=== PATIENT | female | born 1970 | race Caucasian/White ===

== ENCOUNTER 2017-12-31 15:37 | Emergency (ER) | payer SELFPAY ==
[~2017-12-31] VITALS: Ht 190.5 cm; Wt 136.1 kg
[~2017-12-31 15:37] MED LIST: BIRTH CONTROL
[2017-12-31] MEDS ORDERED: NS IV 1000 ML 1,000 ML IV SCH (16:45)
[2017-12-31] MEDS ORDERED: fentaNYL INJECTION 100 MCG/2 ML AMP IVP ONE (16:45)
[2017-12-31 16:49] LABS: COLOR,URINE AMBER; GLUCOSE, URINE (UA) NEGATIVE (NEGATIVE); KETONES,URINE NEGATIVE (NEGATIVE); LEUKOCYTE ESTERASE ,URINE 3+ (NEGATIVE); NITRITE,URINE POSITIVE (NEGATIVE); PH,URINE 7 (5-9); PROTEIN,URINE 2+ (NEGATIVE); UROBILINOGEN,URINE 4 MG/DL (NORMAL)
[2017-12-31 17:02] LABS: BACTERIA,URINE TRACE /HPF; BILIRUBIN,URINE 1+ (NEGATIVE); CLARITY,URINE CLOUDY; RBC,URINE RARE /HPF; WBC,URINE 50-100 /HPF
[2017-12-31 17:03] LABS: TRICHOMONAS,URINE MODERATE /HPF
[2017-12-31 17:15] LABS: BASOPHILS # (AUTO) 0.1 10^3/uL (0.0-0.1); BASOPHILS % (AUTO) 0 % (0-10); EOSINOPHILS # (AUTO) 0.2 10^3/uL (0.0-0.3); EOSINOPHILS % (AUTO) 1 % (0-10); HEMATOCRIT 47 % (35-52); HEMOGLOBIN 15.8 G/DL (11.5-16.0); LYMPHOCYTES # (AUTO) 3.1 X 10^3 (1.0-4.0); LYMPHOCYTES % (AUTO) 22 % (12-44); MEAN CORPUSCULAR HEMOGLOBIN 30 PG (25-34); MEAN CORPUSCULAR HGB CONC 34 G/DL (32-36); MEAN CORPUSCULAR VOLUME 87 FL (80-99); MEAN PLATELET VOLUME 9.9 FL (7.4-10.4); MONOCYTES # (AUTO) 0.9 X 10^3 (0.0-1.0); MONOCYTES % (AUTO) 7 % (0-12); NEUTROPHILS # (AUTO) 9.4 X 10^3 (1.8-7.8); NEUTROPHILS % (AUTO) 69 % (42-75); PLATELET COUNT 280 10^3/uL (130-400); RED BLOOD COUNT 5.36 10^6/uL (4.35-5.85); WHITE BLOOD COUNT 13.6 10^3/uL (4.3-11.0)
[2017-12-31 17:34] LABS: ALANINE AMINOTRANSFERASE 30 U/L (0-55); ALBUMIN 4.3 GM/DL (3.2-4.5); ALKALINE PHOSPHATASE 116 U/L (40-136); AMYLASE 16 U/L (25-125); BILIRUBIN,TOTAL 0.7 MG/DL (0.1-1.0); BUN/CREATININE RATIO 7; CALCIUM 10.3 MG/DL (8.5-10.1); CARBON DIOXIDE 18 MMOL/L (21-32); CHLORIDE 106 MMOL/L (98-107); GFR ESTIMATED > 60; GLUCOSE 101 MG/DL (70-105); LIPASE 7 U/L (8-78); POTASSIUM 4.1 MMOL/L (3.6-5.0); SODIUM 136 MMOL/L (135-145); TOTAL PROTEIN 8.3 GM/DL (6.4-8.2)
--- NOTE | 2017-12-31 17:43 | ED Abdominal Pain ---
General Chief Complaint: Abdominal/GI Problems Stated Complaint: ABD SPASMS Nursing Triage Note: PT AMB TO ROOM 2 W/O DIFFICULTY. A&OX4. CO ABD SPASMS/PAIN THAT RADIATE DOWN FROM TOP OF ABD DOWN TO BILAT UPPER LEGS. PT DENIES SOA. PT REPORTS 6MO HX OF BLADDER SPASMS. Sepsis Screen: No Definite Risk Source of Information: Patient Exam Limitations: No Limitations History of Present Illness Date Seen by Provider: Dec 31, 2017 Time Seen by Provider: 15:00 Initial Comments Patient is a 47-year-old female who presents to the of abdominal spasms for the past 3 days. She states that she has a history of bladder spasms and she takes Azo for this. She does report frequent urination. Timing/Duration: 3-4 Days Severity/Quality: Cramping Location: Generalized Abdomen Radiation: No Radiation Activities at Onset: None Associated Symptoms: No Fever/Chills, No Nausea/Vomiting Allergies and Home Medications Allergies Coded Allergies: Amoxicillin (Unverified Allergy, Mild, 01/29/09) Patient Home Medication List Home Medication List Reviewed: Yes Review of Systems Constitutional: see HPI; No chills, No diaphoresis EENTM: No Symptoms Reported Respiratory: See HPI; Denies Cough, Denies Shortness of Air, Denies Wheezing Cardiovascular: See HPI; Denies Chest Pain, Denies Edema, Denies Irregular Heart Rate Gastrointestinal: See HPI, Abdominal Pain; Denies Nausea, Denies Vomiting Genitourinary: See HPI; Denies Burning, Denies Discharge, Denies Drainage; Frequency Musculoskeletal: see HPI; No back pain, No gout, No joint pain Skin: see HPI; No change in color, No change in hair/nails Psychiatric/Neurological: See HPI; Denies Anxiety, Denies Depressed, Denies Emotional Problems Endocrine: See HPI; Denies Excessive Sweating, Denies Flushing, Denies Intolerance to Cold Hematologic/Lymphatic: See HPI; Denies Anemia, Denies Blood Clots All Other Systems Reviewed Negative Unless Noted: Yes Past Ufcotsg-Qrbffl-Gosqee Hx Past Med/Social Hx: Reviewed Nursing Past Med/Soc Hx Patient Social History Recent Foreign Travel: No Contact w/Someone Who Travel: No Recent Infectious Disease Expo: No Physical Abuse: No Sexual Abuse: No Past Medical History Nursing Suicide Risk Score: 0 Family Medical History Reviewed Nursing Family Hx Physical Exam Vital Signs Capillary Refill : Less Than 3 Seconds Height/Weight/BMI Height: 6'3.00" Weight: 300lbs. oz. [id number]; BMI Method:Stated General Appearance: WD/WN, no apparent distress HEENT: PERRL/EOMI, normal ENT inspection, TMs normal, pharynx normal Neck: non-tender, full range of motion, supple, normal inspection Respiratory: chest non-tender, lungs clear, normal breath sounds, no respiratory distress, no accessory muscle use Cardiovascular: regular rate, rhythm, no edema, no gallop, no JVD, no murmur Gastrointestinal: normal bowel sounds, non tender, soft, no organomegaly, no pulsatile mass Extremities: normal range of motion, non-tender, normal inspection, no pedal edema, no calf tenderness Back: normal inspection, no CVA tenderness, no vertebral tenderness Neurologic/Psychiatric: alert, normal mood/affect, oriented x 3 Skin: normal color, warm/dry Lymphatic: no adenopathy Progress/Results/Core Measures Results/Orders Lab Results Laboratory Tests Test 12/31/17 16:25 12/31/17 17:02 Range/Units Urine Color FERNANDA H Urine Clarity CLOUDY H Urine pH 7 5-9 Urine Specific [place] 1.010 L 1.016-1.022 Urine Protein 2+ H NEGATIVE Urine Glucose (UA) NEGATIVE NEGATIVE Urine Ketones NEGATIVE NEGATIVE Urine Nitrite POSITIVE H NEGATIVE Urine Bilirubin 1+ H NEGATIVE Urine Urobilinogen 4 H NORMAL MG/DL Urine Leukocyte Esterase 3+ H NEGATIVE Urine RBC (Auto) 3+ H NEGATIVE Urine RBC RARE /HPF Urine WBC 50-100 H /HPF Urine Squamous Epithelial Cells 5-10 /HPF Urine Crystals NONE /LPF Urine Bacteria TRACE /HPF Urine Casts NONE /LPF Urine Mucus NEGATIVE /LPF Urine Trichomonas MODERATE H /HPF Urine Culture Indicated YES White Blood Count 13.6 H 4.3-11.0 10^3/uL Red Blood Count 5.36 4.35-5.85 10^6/uL Hemoglobin 15.8 11.5-16.0 G/DL Hematocrit 47 35-52 % Mean Corpuscular Volume 87 80-99 FL Mean Corpuscular Hemoglobin 30 25-34 PG Mean Corpuscular Hemoglobin Concent 34 32-36 G/DL Red Cell Distribution Width 15.0 H 10.0-14.5 % Platelet Count 280 130-400 10^3/uL Mean Platelet Volume 9.9 7.4-10.4 FL Neutrophils (%) (Auto) 69 42-75 % Lymphocytes (%) (Auto) 22 12-44 % Monocytes (%) (Auto) 7 0-12 % Eosinophils (%) (Auto) 1 0-10 % Basophils (%) (Auto) 0 0-10 % Neutrophils # (Auto) 9.4 H 1.8-7.8 X 10^3 Lymphocytes # (Auto) 3.1 1.0-4.0 X 10^3 Monocytes # (Auto) 0.9 0.0-1.0 X 10^3 Eosinophils # (Auto) 0.2 0.0-0.3 10^3/uL Basophils # (Auto) 0.1 0.0-0.1 10^3/uL Sodium Level 136 135-145 MMOL/L Potassium Level 4.1 3.6-5.0 MMOL/L Chloride Level 106 98-107 MMOL/L Carbon Dioxide Level 18 L 21-32 MMOL/L Anion Gap 12 5-14 MMOL/L Blood Urea Nitrogen 5 L 7-18 MG/DL Creatinine 0.70 0.60-1.30 MG/DL Estimat Glomerular Filtration Rate > 60 BUN/Creatinine Ratio 7 Glucose Level 101 70-105 MG/DL Calcium Level 10.3 H 8.5-10.1 MG/DL Total Bilirubin 0.7 0.1-1.0 MG/DL Aspartate Amino Transf (AST/SGOT) 16 5-34 U/L Alanine Aminotransferase (ALT/SGPT) 30 0-55 U/L Alkaline Phosphatase 116 40-136 U/L Total Protein 8.3 H 6.4-8.2 GM/DL Albumin 4.3 3.2-4.5 GM/DL Amylase Level 16 L 25-125 U/L Lipase 7 L 8-78 U/L Serum Test, Qualitative NEGATIVE NEGATIVE Micro Results Microbiology 12/31/17 Urine Culture - Final, Complete See Comments My Orders Orders - ONI DUARN Comprehensive Metabolic Panel (12/31/17 16:37) Lipase (12/31/17 16:37) Amylase (12/31/17 16:37) Ua Culture If Indicated (12/31/17 16:37) Hcg,Qualitative Serum (12/31/17 16:37) Saline Lock/Iv-Start (12/31/17 16:37) Cbc With Automated Diff (12/31/17 16:37) Ns Iv 1000 Ml (Sodium Chloride 0.9%) (12/31/17 16:45) Fentanyl Injection (Sublimaze Injection (12/31/17 16:45) Urine Culture (12/31/17 16:25) Ceftriaxone Injection (Rocephin Injectio (12/31/17 17:45) Phenazopyridine Tablet (Pyridium Tablet) (12/31/17 17:45) Iv Infusion <= First Hr Ed (12/31/17 ) Medications Given in ED Vital Signs/I&O Blood Pressure Mean: 104 Progress Progress Note : Time: 18:15 Progress Note Patient was informed with results of a urinary tract infection. She was given Pyridium and Rocephin in the emergency room and a liter of normal saline. She was sent home with a prescription for Pyridium, Bactrim and with recommendations of increasing fluid intake And close follow-up with [facility] and return precautions to the ER. She agrees with complains of discharge. Departure Impression Primary Impression: Urinary tract infection Disposition: 01 HOME, SELF-CARE Condition: Stable/Unchanged Departure-Patient Inst. Decision time for Depature: 18:05 Referrals: [facility] (PCP/Family) Primary Care Physician Patient Instructions: Urinary Tract Infection, Adult (DC) Add. Discharge Instructions: Take medications as directed. Don't be alarmed if your urine is orange, as is expected with the Pyridium. Increase her fluid intake to help facilitate flushing out the kidneys and urinary tract. Follow-up with your doctor within 1 week for recheck. Return back to the emergency room for any increased pain, nausea, vomiting, fever, or any other concerns as needed. All discharge instructions reviewed with patient and/or family. Voiced understanding. ONI DURAN Dec 31, 2017 17:43
[2017-12-31] MEDS ORDERED: cefTRIAXone INJECTION 1,000 MG in NS (IVPB) 50 ML IV ONE (17:45)
[2017-12-31] MEDS ORDERED: PHENAZOPYRIDINE 100 MG (PYRIDIUM) TABLET PO ONE (17:45)
[2017-12-31 18:35] VITALS: BP 132/90
--- OUTSIDE RECORDS SUMMARY | 2018-01-01 12:32 | XMS REPORT | Continuity of Care Document ---
Author Author [facility] Organization [facility] Address Unknown Phone Unavailable Allergies Active Description Code Type Severity Reaction Onset Reported/Identified Relationship to Patient Clinical Status Yes amoxicillin [id number] Drug Allergy Mild N/A 01/29/2009 Medications There is no data. Problems Date Dx Coded Attending Type Code Diagnosis Diagnosed By 07/19/2015 ETSELA BATES DIRECTOR TEEN POST Ot 194.6 07/19/2015 ESTELA BATES DIRECTOR TEEN POST Ot 724.5 07/19/2015 ESTELA BATES DIRECTOR TEEN POST Ot 959.9 07/19/2015 ESTELA BATES DIRECTOR TEEN POST Ot E000.8 07/19/2015 ESTELA BATES DIRECTOR TEEN POST Ot E819.0 08/11/2015 CARMELLA BISHOP PARTS AND SERVICE MANAGER Ot J18.9 08/31/2015 CARMELLA BISHOP [employer] SERVICE MANAGER Ot J45.909 Procedures There is no data. Results Test Result Range Complete urinalysis with reflex to culture - 12/31/17 16:25 Urine color determination FERNANDA NRG Urine clarity determination CLOUDY NRG Urine pH measurement by test strip 7 5-9 Specific gravity of urine by test strip 1.010 1.016- 1.022 Urine protein assay by test strip, semi-quantitative 2+ NEGATIVE Urine glucose detection by automated test strip NEGATIVE NEGATIVE Erythrocytes detection in urine sediment by light microscopy 3+ NEGATIVE Urine ketones detection by automated test strip NEGATIVE NEGATIVE Urine nitrite detection by test strip POSITIVE NEGATIVE Urine total bilirubin detection by test strip 1+ NEGATIVE Urine urobilinogen measurement by automated test strip (mass/volume) 4 mg/dL NORMAL Urine leukocyte esterase detection by dipstick 3+ NEGATIVE Automated urine sediment erythrocyte count by microscopy (number/high power field) RARE NRG Automated urine sediment leukocyte count by microscopy (number/high power field ) [HPF] NRG Bacteria detection in urine sediment by light microscopy TRACE NRG Squamous epithelial cells detection in urine sediment by light microscopy 5-10 NRG Crystals detection in urine sediment by light microscopy NONE NRG Casts detection in urine sediment by light microscopy NONE NRG Mucus detection in urine sediment by light microscopy NEGATIVE NRG Complete urinalysis with reflex to culture YES NRG Urine Trichomonas species detection by light microscopy MODERATE NRG Complete blood count (CBC) with automated white blood cell (WBC) differential - 12/31/17 17:02 Blood leukocytes automated count (number/volume) 13.6 10*3/uL 4.3-11.0 Blood erythrocytes automated count (number/volume) 5.36 10*6/uL 4.35-5.85 Venous blood hemoglobin measurement (mass/volume) 15.8 g/dL 11.5-16.0 Blood hematocrit (volume fraction) 47 % 35-52 Automated erythrocyte mean corpuscular volume 87 [foz_us] 80-99 Automated erythrocyte mean corpuscular hemoglobin (mass per erythrocyte) 30 pg 25-34 Automated erythrocyte mean corpuscular hemoglobin concentration measurement ( mass/volume) 34 g/dL 32-36 Automated erythrocyte distribution width ratio 15.0 % 10.0-14.5 Automated blood platelet count (count/volume) 280 10*3/uL 130-400 Automated blood platelet mean volume measurement 9.9 [foz_us] 7.4-10.4 Automated blood neutrophils/100 leukocytes 69 % 42-75 Automated blood lymphocytes/100 leukocytes 22 % 12-44 Blood monocytes/100 leukocytes 7 % 0-12 Automated blood eosinophils/100 leukocytes 1 % 0-10 Automated blood basophils/100 leukocytes 0 % 0-10 Blood neutrophils automated count (number/volume) 9.4 10*3 1.8-7.8 Blood lymphocytes automated count (number/volume) 3.1 10*3 1.0-4.0 Blood monocytes automated count (number/volume) 0.9 10*3 0.0-1.0 Automated eosinophil count 0.2 10*3/uL 0.0-0.3 Automated blood basophil count (count/volume) 0.1 10*3/uL 0.0-0.1 Serum or plasma choriogonadotropin ( test) detection - 12/31/17 17:02 Serum or plasma choriogonadotropin ( test) detection NEGATIVE NEGATIVE Comprehensive metabolic panel - 12/31/17 17:02 Serum or plasma sodium measurement (moles/volume) 136 mmol/L 135-145 Serum or plasma potassium measurement (moles/volume) 4.1 mmol/L 3.6-5.0 Serum or plasma chloride measurement (moles/volume) 106 mmol/L 98-107 Carbon dioxide 18 mmol/L 21-32 Serum or plasma anion gap determination (moles/volume) 12 mmol/L 5-14 Serum or plasma urea nitrogen measurement (mass/volume) 5 mg/dL 7-18 Serum or plasma creatinine measurement (mass/volume) 0.70 mg/dL 0.60-1.30 Serum or plasma urea nitrogen/creatinine mass ratio 7 NRG Serum or plasma creatinine measurement with calculation of estimated glomerular filtration rate > NRG Serum or plasma glucose measurement (mass/volume) 101 mg/dL 70-105 Serum or plasma calcium measurement (mass/volume) 10.3 mg/dL 8.5-10.1 Serum or plasma total bilirubin measurement (mass/volume) 0.7 mg/dL 0.1-1.0 Serum or plasma alkaline phosphatase measurement (enzymatic activity/volume) 116 U/L 40-136 Serum or plasma aspartate aminotransferase measurement (enzymatic activity/ volume) 16 U/L 5-34 Serum or plasma alanine aminotransferase measurement (enzymatic activity/volume ) 30 U/L 0-55 Serum or plasma protein measurement (mass/volume) 8.3 g/dL 6.4-8.2 Serum or plasma albumin measurement (mass/volume) 4.3 g/dL 3.2-4.5 Serum or plasma amylase measurement (enzymatic activity/volume) - 12/31/17 17: 02 Serum or plasma amylase measurement (enzymatic activity/volume) 16 U /L 25-125 Lipase - 12/31/17 17:02 Lipase 7 U/L 8-78 Encounters ACCT No. Visit Date/Time Discharge Status Pt. Type Provider Facility Loc./Unit Complaint [id number] 08/06/2015 10:46:00 08/06/2015 23:59:59 CLS Outpatient CARMELLA BISHOP APRN [facility] RAD [id number] 07/19/2015 12:58:00 07/19/2015 23:59:59 CLS Outpatient CARMELLA BISHOP APRN [facility] RAD [id number] 12/15/2014 11:36:00 12/15/2014 23:59:59 CLS Outpatient ESTELA BATES [facility] [id number] 06/17/2013 11:20:00 06/17/2013 23:59:59 CLS Outpatient [id number] 12/31/2017 17:03:00 Document Registration
[2018-01-14] MEDS ORDERED: ONDA4TAB11 PO (11:21)
[2018-01-14] MEDS ORDERED: ACHD5005 PO (11:21)
[2018-01-14] MEDS ORDERED: METR500T PO (11:21)
[2018-01-14] MEDS ORDERED: IBUP-1780 PO (11:21)
[2018-01-14] MEDS ORDERED: CEPH-507 PO (11:21)
== END 2017-12-31 18:35 | disposition home or self-care (01) ==
LOC: EDUNIT# 15:37 → ER 15:40
DX: N39.0 Urinary tract infection, site not specified (principal); Z88.1 Allergy status to other antibiotic agents
CPT/HCPCS: 36415; 80053; 81000; 82150; 83690; 84703; 85025; 87088; 96361; 96365; 96375

== ENCOUNTER 2018-01-12 16:10 | Inpatient (IN) | payer SELFPAY ==
[~2018-01-12] VITALS: Ht 190.5 cm; Wt 130.4 kg
[2018-01-12] MEDS ORDERED: NS IV 1000 ML 1,000 ML IV SCH (16:30)
[2018-01-12 16:46] LABS: BILIRUBIN,URINE 1+ (NEGATIVE); CLARITY,URINE SLIGHTLY CLOUDY; COLOR,URINE AMBER; GLUCOSE, URINE (UA) NEGATIVE (NEGATIVE); KETONES,URINE 3+ (NEGATIVE); LEUKOCYTE ESTERASE ,URINE 3+ (NEGATIVE); NITRITE,URINE NEGATIVE (NEGATIVE); PH,URINE 6 (5-9); PROTEIN,URINE 3+ (NEGATIVE); UROBILINOGEN,URINE 4 MG/DL (NORMAL)
--- NOTE | 2018-01-12 16:50 | ED General ---
General Stated Complaint: UTI/FEVER/SOB Source of Information: Patient Exam Limitations: No Limitations History of Present Illness Date Seen by Provider: Jan 12, 2018 Time Seen by Provider: 16:48 Initial Comments to ER with a one-week history of fever, urinary tract infection, shortness of breath. She was seen here about a week ago and diagnosed with urinary tract infection and given Bactrim. No improvement. She followed up with her primary care provider and was given a prescription for Omnicef. She started that yesterday. Today she reports shortness of breath, diffuse abdominal cramping, nausea and vomiting. She's been unable to eat or drink much. Timing/Duration: 1 Week, Getting Worse Severity: Moderate Associated Systoms: No Chest Pain; Cough; No Diaphoresis; Fever/Chills; No Headaches; Loss of Appetite, Nausea/Vomiting, Shortness of Air Allergies and Home Medications Allergies Coded Allergies: Amoxicillin (Unverified Allergy, Mild, 01/29/09) Patient Home Medication List Home Medication List Reviewed: Yes Review of Systems Constitutional: see HPI EENTM: see HPI Respiratory: no symptoms reported Cardiovascular: no symptoms reported Genitourinary: no symptoms reported Musculoskeletal: no symptoms reported Skin: no symptoms reported Psychiatric/Neurological: No Symptoms Reported Hematologic/Lymphatic: No Symptoms Reported Immunological/Allergic: no symptoms reported Past Uxfapbq-Fvhaca-Acezno Hx Patient Social History Type Used: Cigarettes Recent Foreign Travel: No Contact w/Someone Who Travel: No Recent Hopitalizations: No Seasonal Allergies Seasonal Allergies: Yes Past Medical History Surgeries: No (DENIES) Respiratory: No Cardiac: No Neurological: No Genitourinary: No Gastrointestinal: No Musculoskeletal: Yes (CARPEL-TUNNEL, CUBITAL-TUNNEL) HEENT: No Cancer: No Psychosocial: Yes Anxiety Integumentary: No Blood Disorders: No Adverse Reaction/Blood Tranf: No Physical Exam Vital Signs Vital Signs - First Documented 01/12/18 16:15 Temp 99.0 Pulse 123 Resp 20 B/P (MAP) 137/74 (95) O2 Delivery Room Air Capillary Refill : Height, Weight, BMI Height: 6'3.00" Weight: 300lbs. oz. 136.103519ya; BMI Method:Stated General Appearance: No Apparent Distress, WD/WN, Mild Distress (tachypneic and and tachycardic) Eyes: Bilateral Eye Normal Inspection, Bilateral Eye PERRL, Bilateral Eye EOMI HEENT: PERRL/EOMI, TMs Normal Neck: Full Range of Motion, Normal Inspection; No JVD Respiratory: Lungs Clear, Normal Breath Sounds, No Accessory Muscle Use; No Accessory Muscle Use, No Decreased Breath Sounds, No Expiration; Other ( tachypnea) Cardiovascular: Normal Peripheral Pulses, Tachycardia (120 regular) Gastrointestinal: Non Tender, Soft Genital/Rectal: Other (pelvic exam done with Meryl HERNDON at the bedside. There is no cervical motion tenderness. There is a whitish discharge from the cervix. ) Extremity: Normal Capillary Refill, Normal Inspection Neurologic/Psychiatric: Alert, Oriented x3, No Motor/Sensory Deficits Skin: Normal Color, Warm/Dry Focused Exam Lactate Level 01/12/18 16:43: Lactic Acid Level 1.75 Lactic Acid Level Laboratory Tests Test 01/12/18 16:43 Lactic Acid Level 1.75 MMOL/L (0.50-2.00) Progress/Results/Core Measures Suspected Sepsis SIRS Temperature: Pulse: Respiratory Rate: Laboratory Tests 01/12/18 16:43: White Blood Count 25.2H Blood Pressure / Mean: 01/12/18 16:43: Lactic Acid Level 1.75 Laboratory Tests 01/12/18 16:43: Creatinine 0.81, Platelet Count 338, Total Bilirubin 1.0 Results/Orders Lab Results Laboratory Tests Test 01/12/18 16:35 01/12/18 16:43 01/12/18 20:12 Range/Units Urine Color FERNANDA H Urine Clarity SLIGHTLY CLOUDY Urine pH 6 5-9 Urine Specific [place] 1.015 L 1.016-1.022 Urine Protein 3+ H NEGATIVE Urine Glucose (UA) NEGATIVE NEGATIVE Urine Ketones 3+ H NEGATIVE Urine Nitrite NEGATIVE NEGATIVE Urine Bilirubin 1+ H NEGATIVE Urine Urobilinogen 4 H NORMAL MG/DL Urine Leukocyte Esterase 3+ H NEGATIVE Urine RBC (Auto) 5+ H NEGATIVE Urine RBC 50-100 H /HPF Urine WBC >100 H /HPF Urine Squamous Epithelial Cells >50 H /HPF Urine Crystals NONE /LPF Urine Bacteria FEW H /HPF Urine Casts NONE /LPF Urine Mucus NEGATIVE /LPF Urine Trichomonas MODERATE H /HPF Urine Culture Indicated YES White Blood Count 25.2 H 4.3-11.0 10^3/uL Red Blood Count 5.04 4.35-5.85 10^6/uL Hemoglobin 14.9 11.5-16.0 G/DL Hematocrit 44 35-52 % Mean Corpuscular Volume 87 80-99 FL Mean Corpuscular Hemoglobin 30 25-34 PG Mean Corpuscular Hemoglobin Concent 34 32-36 G/DL Red Cell Distribution Width 15.3 H 10.0-14.5 % Platelet Count 338 130-400 10^3/uL Mean Platelet Volume 9.6 7.4-10.4 FL Neutrophils (%) (Auto) 88 H 42-75 % Lymphocytes (%) (Auto) 9 L 12-44 % Monocytes (%) (Auto) 4 0-12 % Eosinophils (%) (Auto) 0 0-10 % Basophils (%) (Auto) 0 0-10 % Neutrophils # (Auto) 22.2 H 1.8-7.8 X 10^3 Lymphocytes # (Auto) 2.1 1.0-4.0 X 10^3 Monocytes # (Auto) 0.9 0.0-1.0 X 10^3 Eosinophils # (Auto) 0.0 0.0-0.3 10^3/uL Basophils # (Auto) 0.0 0.0-0.1 10^3/uL Neutrophils % (Manual) 77 % Lymphocytes % (Manual) 16 % Monocytes % (Manual) 2 % Eosinophils % (Manual) 0 % Basophils % (Manual) 0 % Band Neutrophils 5 % Blood Morphology Comment NORMAL D-Dimer 7.52 H 0.00-0.49 UG/ML Sodium Level 137 135-145 MMOL/L Potassium Level 3.6 3.6-5.0 MMOL/L Chloride Level 101 98-107 MMOL/L Carbon Dioxide Level 24 21-32 MMOL/L Anion Gap 12 5-14 MMOL/L Blood Urea Nitrogen 8 7-18 MG/DL Creatinine 0.81 0.60-1.30 MG/DL Estimat Glomerular Filtration Rate > 60 BUN/Creatinine Ratio 10 Glucose Level 104 70-105 MG/DL Lactic Acid Level 1.75 0.50-2.00 MMOL/L Calcium Level 10.3 H 8.5-10.1 MG/DL Total Bilirubin 1.0 0.1-1.0 MG/DL Aspartate Amino Transf (AST/SGOT) 22 5-34 U/L Alanine Aminotransferase (ALT/SGPT) 18 0-55 U/L Alkaline Phosphatase 137 H 40-136 U/L Total Protein 8.0 6.4-8.2 GM/DL Albumin 3.9 3.2-4.5 GM/DL Serum Test, Qualitative NEGATIVE NEGATIVE My Orders Orders - LAWSON GUERRERO APRN Cbc With Automated Diff (01/12/18 16:23) Comprehensive Metabolic Panel (01/12/18 16:23) Ua Culture If Indicated (01/12/18 16:23) Iv Heplock-Insert (Order) (01/12/18 16:23) Chest Pa/Lat (2 View) (01/12/18 16:23) Blood Culture (01/12/18 16:26) Lactic Acid Analyzer (01/12/18 16:26) Ns Iv 1000 Ml (Sodium Chloride 0.9%) (01/12/18 16:30) Fibrin Degradation Products (01/12/18 16:46) Ondansetron Injection (Zofran Injectio (01/12/18 17:00) Manual Differential (01/12/18 16:43) Urine Culture (01/12/18 16:35) Iohexol Injection (Omnipaque 350 Mg/Ml 1 (01/12/18 17:45) Sodium Chloride Flush (Catheter Flush Sy (01/12/18 17:45) Ns (Ivpb) (Sodium Chloride 0.9%) (01/12/18 17:45) Pharmacy Communication (Pharmacy Communi (01/12/18 17:37) Ceftriaxone Injection (Rocephin Injectio (01/12/18 17:45) Hcg,Qualitative Serum (01/12/18 17:50) Fentanyl Injection (Sublimaze Injection (01/12/18 18:15) Ct Chyna Chest/Noang Abd-Pelv W (01/12/18 17:22) Metronidazole 500mg/100ml Ivpb (Flagyl 5 (01/12/18 19:15) Morphine Injection (Morphine Injection (01/12/18 19:30) Us Non Ob Transvaginal [id number] (01/12/18 19:27) Wet Prep (01/12/18 20:30) Neisseria Gonorrhea Swab (01/12/18 20:30) Genital Culture (01/12/18 20:30) Chlamydia Trachomatis Swab (01/12/18 20:30) Medications Given in ED Current Medications Medications Dose Ordered Sig/Juan Route Start Time Stop Time Status Last Admin Dose Admin Ceftriaxone Sodium 2000 mg/ Sodium Chloride 50 ml @ 100 mls/hr ONCE ONCE IV 01/12/18 17:45 01/12/18 18:14 DC 01/12/18 17:58 100 MLS/HR Fentanyl Citrate 50 mcg ONCE ONCE IVP 01/12/18 18:15 01/12/18 18:16 DC 01/12/18 18:09 50 MCG Iohexol 150 ml ONCE ONCE IV 01/12/18 17:45 01/12/18 17:46 DC 01/12/18 18:34 125 ML Metronidazole 100 ml @ 100 mls/hr ONCE ONCE IV 01/12/18 19:15 01/12/18 20:14 DC 01/12/18 19:22 100 MLS/HR Morphine Sulfate 5 mg ONCE ONCE IVP 01/12/18 19:30 01/12/18 19:31 DC 01/12/18 19:34 5 MG Ondansetron HCl 8 mg ONCE ONCE IVP 01/12/18 17:00 01/12/18 17:01 DC 01/12/18 17:00 8 MG Sodium Chloride 10 ml NEEDED PRN IV 01/12/18 17:45 01/12/18 18:34 10 ML Sodium Chloride 250 ml ONCE ONCE IV 01/12/18 17:45 01/12/18 17:46 DC 01/12/18 18:34 80 ML Vital Signs/I&O 01/12/18 16:15 Temp 99.0 Pulse 123 Resp 20 B/P (MAP) 137/74 (95) O2 Delivery Room Air Capillary Refill : Diagnostic Imaging Comments NAME: OMKARJOAO L [employer] REC#: [id number] PT STATUS: REG ER : 1970 PHYSICIAN: LAWSON GUERRERO EXPORT COORDINATOR ADMIT DATE: 01/12/18/ER Signed Date of Exam:01/12/18 CT CHYNA CHEST/NOANG ABD-PELV W INDICATION: Pain, shortness of breath, elevated d-dimer and tachycardia. Chest: FINDINGS: There are no intraluminal pulmonary arterial filling defects identified. The peripheral subsegmental branch opacification is somewhat limited on a technical basis but there were no findings at this study felt suggestive of PE. The aorta is patent and nonaneurysmal as well as nonacute. There are patchy perihilar and basilar zones of atelectasis with no effusion or pneumothorax. No acute chest wall pathology. No mass or adenopathy. Visualized upper abdomen nonacute. IMPRESSION: No evidence for PE. No acute aortic abnormality. Scattered zones of partial atelectasis with no acute pleural abnormality or thoracic effusion. No mass or adenopathy. Abdomen and pelvis: FINDINGS: There are extensive pelvic inflammatory changes with edema and congestion of the pelvic mesentery and small volume free fluid without discrete loculation. There are multiple diverticula at the sigmoid colon but the appearance was not convincing or classic for sigmoid diverticulitis. Segment of diverticulated colon was not substantially thickened. Cannot identify with confidence a normal appendix. The pelvic small bowel loops are somewhat matted and thickened which may be secondary or primary. No convincing evidence for extraluminal air or free gas. Some heterogeneous enlargement and cyst formation within the left ovary. The right adnexa itself appeared unremarkable. There are gallstones present without evidence for acute cholecystitis. The liver, spleen, adrenals and pancreas were unremarkable. Kidneys are unobstructed. There is no air within the urinary bladder. The bladder appeared normal. IMPRESSION: Extensive pelvic inflammatory changes with mesenteric edema and small volume of free fluid. Etiology is not clear at this exam. I cannot identify the appendix itself; however, the pericecal fat was not particularly inflamed when compared to the remaining pelvis. This could be reflective of gynecological pelvic inflammatory disease. Changes of sigmoid diverticulitis are an additional consideration. No obstruction, abscess or perforation. Dictated by: Dictated on workstation # [id number] Dict: 01/12/181850 Trans: 01/12/181943 [facility] [id number] Interpreted by: KELLIE POLANCO Electronically signed by: KELLIE POLANCO 01/12/181943 Departure Communication (Admissions) Time/Spoke to Admitting Phy: 19:[address] Guidry at first. I also discussed the case with radiologist Dr. Polanco. He notes that there is some pelvic free fluid but no loculated fluid collection or drainable fluid collection. There is some edema and nonspecific inflammation in the pelvis but this does not seem to be more prominent in the pericecal region as you would expect with appendicitis. Despite that, he is unable to identify clearly and appendix. She does have some sigmoid diverticuli. Differential would include a sigmoid diverticulitis versus pelvic/ gynecologic infection versus appendicitis. Dr. Guidry agrees with Mackenzie and Mariza, admit to [facility], he will consult and he would also like to consult gynecology Time/Spoke to Consulting Phy: 19:[address] Landin physical education instructor for [facility]. Agrees with plan Family Conversation I did notify Dr. Magana of consult. He agrees to consult on her Impression Primary Impression: Sepsis Additional Impressions: Sigmoid diverticulosis Pelvic inflammation in female Disposition: 09 ADMITTED INPATIENT Condition: Stable Admissions Decision to Admit Reason: Admit from ER (General) Decision to Admit/Date: Jan 12, 2018 Time/Decision to Admit Time: 17:28 Departure-Patient Inst. Referrals: [facility] (PCP/Family) Primary Care Physician LAWSON GUERRERO APRN Jan 12, 2018 16:50
[2018-01-12 16:56] LABS: BASOPHILS % (AUTO) 0 % (0-10); EOSINOPHILS % (AUTO) 0 % (0-10); HEMATOCRIT 44 % (35-52); HEMOGLOBIN 14.9 G/DL (11.5-16.0); LYMPHOCYTES # (AUTO) 2.1 X 10^3 (1.0-4.0); LYMPHOCYTES % (AUTO) 9 % (12-44); MEAN CORPUSCULAR HEMOGLOBIN 30 PG (25-34); MEAN CORPUSCULAR HGB CONC 34 G/DL (32-36); MEAN CORPUSCULAR VOLUME 87 FL (80-99); MEAN PLATELET VOLUME 9.6 FL (7.4-10.4); MONOCYTES # (AUTO) 0.9 X 10^3 (0.0-1.0); MONOCYTES % (AUTO) 4 % (0-12); NEUTROPHILS # (AUTO) 22.2 X 10^3 (1.8-7.8); NEUTROPHILS % (AUTO) 88 % (42-75); PLATELET COUNT 338 10^3/uL (130-400); RED BLOOD COUNT 5.04 10^6/uL (4.35-5.85); RED CELL DISTRIBUTION WIDTH 15.3 % (10.0-14.5); WHITE BLOOD COUNT 25.2 10^3/uL (4.3-11.0)
[2018-01-12 16:59] LABS: BACTERIA,URINE FEW /HPF; RBC,URINE 50-100 /HPF; SQUAMOUS EPITHELIAL CELL,UR >50 /HPF; TRICHOMONAS,URINE MODERATE /HPF; WBC,URINE >100 /HPF
[2018-01-12] MEDS ORDERED: ONDANSETRON 4 MG/2 ML (SDV) Z0FRAN IVP ONE (17:00)
[2018-01-12 17:15] LABS: BAND NEUTROPHILS 5 %; BASOPHILS % (MANUAL) 0 %; EOSINOPHILS % (MANUAL) 0 %; LYMPHOCYTES % (MANUAL) 16 %; MONOCYTES % (MANUAL) 2 %; NEUTROPHILS % (MANUAL) 77 %; RBC MORPH NORMAL
[2018-01-12 17:16] LABS: ALANINE AMINOTRANSFERASE 18 U/L (0-55); ALBUMIN 3.9 GM/DL (3.2-4.5); ALKALINE PHOSPHATASE 137 U/L (40-136); BUN/CREATININE RATIO 10; CALCIUM 10.3 MG/DL (8.5-10.1); CARBON DIOXIDE 24 MMOL/L (21-32); CHLORIDE 101 MMOL/L (98-107); CREATININE SERUM 0.81 MG/DL (0.60-1.30); GFR ESTIMATED > 60; GLUCOSE 104 MG/DL (70-105); POTASSIUM 3.6 MMOL/L (3.6-5.0); SODIUM 137 MMOL/L (135-145)
--- NOTE | 2018-01-12 17:26 | Diagnostic Imaging Report ---
INDICATION: Shortness of breath, chest pressure. COMPARISON: 07/19/2015. FINDINGS: There is poor inspiratory volume with some crowding of the lung markings and perihilar and basilar partial atelectasis. Heart size itself within normal limits. No gross overdistention of the vascularity. No pneumonia, effusion, or pneumothorax. IMPRESSION: Poor inspiration with zones of partial atelectasis, otherwise negative. Dictated by: Dictated on workstation # [id number]
[2018-01-12] MEDS ORDERED: IOHEXOL 350 MG/ML 150 ML (OMNIPAQUE 350) VIAL IV ONE (17:45)
[2018-01-12] MEDS ORDERED: cefTRIAXone INJECTION 2,000 MG in NS (IVPB) 50 ML IV ONE (17:45)
[2018-01-12] MEDS ORDERED: NS 250 ML (IVPB) BAG IV ONE (17:45)
[2018-01-12] MEDS ORDERED: CATHETER FLUSH 10 ML SYR IV PRN (17:45)
[2018-01-12] MEDS ORDERED: fentaNYL INJECTION 100 MCG/2 ML AMP IVP ONE (18:15)
--- NOTE | 2018-01-12 19:01 | Diagnostic Imaging Report ---
INDICATION: Pain, shortness of breath, elevated d-dimer and tachycardia. Chest: FINDINGS: There are no intraluminal pulmonary arterial filling defects identified. The peripheral subsegmental branch opacification is somewhat limited on a technical basis but there were no findings at this study felt suggestive of PE. The aorta is patent and nonaneurysmal as well as nonacute. There are patchy perihilar and basilar zones of atelectasis with no effusion or pneumothorax. No acute chest wall pathology. No mass or adenopathy. Visualized upper abdomen nonacute. IMPRESSION: No evidence for PE. No acute aortic abnormality. Scattered zones of partial atelectasis with no acute pleural abnormality or thoracic effusion. No mass or adenopathy. Abdomen and pelvis: FINDINGS: There are extensive pelvic inflammatory changes with edema and congestion of the pelvic mesentery and small volume free fluid without discrete loculation. There are multiple diverticula at the sigmoid colon but the appearance was not convincing or classic for sigmoid diverticulitis. Segment of diverticulated colon was not substantially thickened. Cannot identify with confidence a normal appendix. The pelvic small bowel loops are somewhat matted and thickened which may be secondary or primary. No convincing evidence for extraluminal air or free gas. Some heterogeneous enlargement and cyst formation within the left ovary. The right adnexa itself appeared unremarkable. There are gallstones present without evidence for acute cholecystitis. The liver, spleen, adrenals and pancreas were unremarkable. Kidneys are unobstructed. There is no air within the urinary bladder. The bladder appeared normal. IMPRESSION: Extensive pelvic inflammatory changes with mesenteric edema and small volume of free fluid. Etiology is not clear at this exam. I cannot identify the appendix itself; however, the pericecal fat was not particularly inflamed when compared to the remaining pelvis. This could be reflective of gynecological pelvic inflammatory disease. Changes of sigmoid diverticulitis are an additional consideration. No obstruction, abscess or perforation. Dictated by: Dictated on workstation # [id number]
[2018-01-12] MEDS ORDERED: metroNIDAZOLE 500MG/100ML IVPB 100 ML IV ONE (19:15)
[2018-01-12] MEDS ORDERED: morphine INJ 10 MG/ML 1ML (SYR OR VIAL) IVP ONE (19:30)
--- NOTE | 2018-01-12 21:21 | Diagnostic Imaging Report ---
INDICATION: Abdominal and pelvic pain. COMPARISON: CT abdomen and pelvis from the same day. FINDINGS: The uterus measures 10 x 7 x 5 cm. The ovaries are nonvisualized due to overlying bowel gas and inflammatory change. There is free fluid within the cul-de-sac. The endometrium is normal at 10 mm. IMPRESSION: 1. Unremarkable appearing uterus. 2. Nonvisualized ovaries due to overlying bowel gas and inflammatory change. 3. Free fluid within the cul-de-sac. Dictated by: Dictated on workstation # [id number]
[2018-01-12] MEDS ORDERED: NS IV 1000 ML 1,000 ML ONE (21:24)
[2018-01-12] MEDS ORDERED: ONDANSETRON 4 MG/2 ML (SDV) Z0FRAN IV PRN (23:15)
[2018-01-12] MEDS: fentaNYL INJECTION 100 MCG/2 ML AMP IV PRN (23:20)
[2018-01-12 23:48] VITALS: BP 118/65
[2018-01-13] MEDS: fentaNYL INJECTION 100 MCG/2 ML AMP IV PRN ×4 (01:30→05:18)
[2018-01-13] MEDS: NS IV 1000 ML 1,000 ML IV SCH ×3 (02:14→23:15)
[2018-01-13 04:05] VITALS: BP 109/77
[2018-01-13] MEDS: metroNIDAZOLE 500 MG/100 ML IVPB (PRE-MIX) IV SCH ×3 (06:05→22:05)
[2018-01-13 07:13] LABS: BASOPHILS % (AUTO) 0 % (0-10); EOSINOPHILS # (AUTO) 0.1 10^3/uL (0.0-0.3); EOSINOPHILS % (AUTO) 1 % (0-10); HEMATOCRIT 36 % (35-52); HEMOGLOBIN 12.3 G/DL (11.5-16.0); LYMPHOCYTES # (AUTO) 1.7 X 10^3 (1.0-4.0); LYMPHOCYTES % (AUTO) 11 % (12-44); MEAN CORPUSCULAR HEMOGLOBIN 30 PG (25-34); MEAN CORPUSCULAR HGB CONC 34 G/DL (32-36); MEAN CORPUSCULAR VOLUME 87 FL (80-99); MEAN PLATELET VOLUME 9.6 FL (7.4-10.4); MONOCYTES # (AUTO) 1.1 X 10^3 (0.0-1.0); MONOCYTES % (AUTO) 7 % (0-12); NEUTROPHILS % (AUTO) 82 % (42-75); PLATELET COUNT 277 10^3/uL (130-400); RED BLOOD COUNT 4.12 10^6/uL (4.35-5.85); RED CELL DISTRIBUTION WIDTH 15.1 % (10.0-14.5); WHITE BLOOD COUNT 15.8 10^3/uL (4.3-11.0)
[2018-01-13 07:31] LABS: ALANINE AMINOTRANSFERASE 34 U/L (0-55); ALKALINE PHOSPHATASE 122 U/L (40-136); BILIRUBIN,TOTAL 0.9 MG/DL (0.1-1.0); BUN/CREATININE RATIO 10; CALCIUM 8.9 MG/DL (8.5-10.1); CARBON DIOXIDE 21 MMOL/L (21-32); CHLORIDE 104 MMOL/L (98-107); CREATININE SERUM 0.67 MG/DL (0.60-1.30); GFR ESTIMATED > 60; GLUCOSE 101 MG/DL (70-105); POTASSIUM 3.5 MMOL/L (3.6-5.0); SODIUM 135 MMOL/L (135-145); TOTAL PROTEIN 5.7 GM/DL (6.4-8.2)
[2018-01-13 08:00] VITALS: BP 110/61
--- NOTE | 2018-01-13 08:46 | History & Physical ---
History and Physical Date Seen by Provider: Jan 13, 2018 Time Seen by Provider: 08:33 This is a PRIMARY CLINICIAN consult note. I was consult for evaluation due to possible pelvic inflammatory disease/pelvic infection History of present illness patient is a 47-year-old white female who was admitted via the emergency department last evening due to pelvic pain nausea vomiting and diarrhea 3 days duration. Patient's history is significant for having been started on antibiotic for urinary tract infection and this has been going on the urinary tract infections have been waxing and waning since at least October of this year. She has not had an evaluation for definite etiology for her bladder infections. Her diarrhea has improved since admission. She states that she feels markedly better than when she presented to the emergency department. She denies vaginal discharge or bleeding. She does not remember when she had her last PRIMARY CLINICIAN exam/Pap smear. She denies urinary incontinence other than when she has her bladder infections. Evaluation in the emergency department included a pelvic exam with Gen-Probe performed those results are pending. Patient's white blood cell count on admission was around 27,000 and his drop now overnight to 15,000 so. Balance of the lab work was reviewed. That would reflect on PRIMARY CLINICIAN etiology. Transvaginal ultrasound was performed showing a normal uterus. Ovaries apparently were not visualized. There was some free fluid. A CAT scan was performed on admission ruling out a PE. Also evaluated the abdomen and pelvis. There was mesenteric inflammation and pelvic inflammation changes noted. These were nonspecific and not eliminated specific etiology for the symptoms. Patient is noted to have some diverticular disease. Ovaries are not mentioned. The uterus was not mentioned on the CT as being of any concern. Allergies are to amoxicillin causes a rash and trazodone was causes nausea Medications include a cephalosporin for urinary tract infection that she just started yesterday or the day before Past medical history includes her obesity Past surgical history is non- 's obstetric history is 3 para 3 vaginal deliveries with no complications Social history she denies drugs or alcohol use Family history is noncontributory Physical exam HEENT exam is normal the patient does appear comfortable Neck supple no lymphadenopathy and no thyromegaly Abdomen is obese. There is fairly significant tenderness in the lower abdomen and the umbilicus and suprapubic pubis. Extremities show no clubbing cyanosis. There is no Homans sign. Pelvic exam was accomplished in the emergency department with a Gen-Probe pending I will not repeat that at this time. Vital Signs Date Time Temp Pulse Resp B/P (MAP) Pulse Ox O2 Delivery O2 Flow Rate FiO2 01/13/18 07:00 84 01/13/18 04:05 98.0 90 20 109/77 (88) 90 Room Air 01/13/18 03:10 98.0 01/13/18 01:00 89 01/12/18 23:48 98.5 101 20 118/65 (82) 92 Room Air 01/12/18 22:01 101 01/12/18 21:04 99.2 116 22 125/71 94 Room Air 01/12/18 18:39 98.5 01/12/18 16:15 99.0 123 20 137/74 (95) Room Air I & O 01/13/18 07:00 Intake Total 2850 ml Output Total 0 ml Balance 2850 ml Vital signs are stable. Patient is afebrile. Laboratory Tests Test 01/12/18 16:35 01/12/18 16:43 01/12/18 20:12 01/13/18 06:55 Range/Units Urine Color FERNANDA H Urine Clarity SLIGHTLY CLOUDY Urine pH 6 5-9 Urine Specific [place] 1.015 L 1.016-1.022 Urine Protein 3+ H NEGATIVE Urine Glucose (UA) NEGATIVE NEGATIVE Urine Ketones 3+ H NEGATIVE Urine Nitrite NEGATIVE NEGATIVE Urine Bilirubin 1+ H NEGATIVE Urine Urobilinogen 4 H NORMAL MG/DL Urine Leukocyte Esterase 3+ H NEGATIVE Urine RBC (Auto) 5+ H NEGATIVE Urine RBC 50-100 H /HPF Urine WBC >100 H /HPF Urine Squamous Epithelial Cells >50 H /HPF Urine Crystals NONE /LPF Urine Bacteria FEW H /HPF Urine Casts NONE /LPF Urine Mucus NEGATIVE /LPF Urine Trichomonas MODERATE H /HPF Urine Culture Indicated YES White Blood Count 25.2 H 15.8 H 4.3-11.0 10^3/uL Red Blood Count 5.04 4.12 L 4.35-5.85 10^6/uL Hemoglobin 14.9 12.3 11.5-16.0 G/DL Hematocrit 44 36 35-52 % Mean Corpuscular Volume 87 87 80-99 FL Mean Corpuscular Hemoglobin 30 30 25-34 PG Mean Corpuscular Hemoglobin Concent 34 34 32-36 G/DL Red Cell Distribution Width 15.3 H 15.1 H 10.0-14.5 % Platelet Count 338 277 130-400 10^3/uL Mean Platelet Volume 9.6 9.6 7.4-10.4 FL Neutrophils (%) (Auto) 88 H 82 H 42-75 % Lymphocytes (%) (Auto) 9 L 11 L 12-44 % Monocytes (%) (Auto) 4 7 0-12 % Eosinophils (%) (Auto) 0 1 0-10 % Basophils (%) (Auto) 0 0 0-10 % Neutrophils # (Auto) 22.2 H 13.0 H 1.8-7.8 X 10^3 Lymphocytes # (Auto) 2.1 1.7 1.0-4.0 X 10^3 Monocytes # (Auto) 0.9 1.1 H 0.0-1.0 X 10^3 Eosinophils # (Auto) 0.0 0.1 0.0-0.3 10^3/uL Basophils # (Auto) 0.0 0.0 0.0-0.1 10^3/uL Neutrophils % (Manual) 77 % Lymphocytes % (Manual) 16 % Monocytes % (Manual) 2 % Eosinophils % (Manual) 0 % Basophils % (Manual) 0 % Band Neutrophils 5 % Blood Morphology Comment NORMAL D-Dimer 7.52 H 0.00-0.49 UG/ML Sodium Level 137 135 135-145 MMOL/L Potassium Level 3.6 3.5 L 3.6-5.0 MMOL/L Chloride Level 101 104 98-107 MMOL/L Carbon Dioxide Level 24 21 21-32 MMOL/L Anion Gap 12 10 5-14 MMOL/L Blood Urea Nitrogen 8 7 7-18 MG/DL Creatinine 0.81 0.67 0.60-1.30 MG/DL Estimat Glomerular Filtration Rate > 60 > 60 BUN/Creatinine Ratio 10 10 Glucose Level 104 101 70-105 MG/DL Lactic Acid Level 1.75 0.50-2.00 MMOL/L Calcium Level 10.3 H 8.9 8.5-10.1 MG/DL Total Bilirubin 1.0 0.9 0.1-1.0 MG/DL Aspartate Amino Transf (AST/SGOT) 22 42 H 5-34 U/L Alanine Aminotransferase (ALT/SGPT) 18 34 0-55 U/L Alkaline Phosphatase 137 H 122 40-136 U/L Total Protein 8.0 5.7 L 6.4-8.2 GM/DL Albumin 3.9 3.0 L 3.2-4.5 GM/DL Serum Test, Qualitative NEGATIVE NEGATIVE Lab work is reviewed. White count is improving. No definite etiology for this patient's symptoms is clear. Although the urine does look suspicious is also is contaminated Assessment and plan 47-year-old with abdominal pain associated with nausea vomiting and diarrhea. Patient has a history of recurrent urinary tract infections. Admission evaluation was concerning for some form of inflammatory process in the lower abdomen and pelvis. This does not appear definitive 4 PID or a tubo-ovarian abscess. Patient is on appropriate antibiotics for PRIMARY CLINICIAN or urinary issues at this point understands a general surgery consult is pending as it is not certain that the process does not include an appendicitis or diverticulitis or other bowel issues. I will remain available if it does seem that additional or further PRIMARY CLINICIAN workup is warranted. At this point I do not have a strong feeling that this is a PRIMARY CLINICIAN issue. Again I remain available if I am needed. Pelvic pain/nausea vomiting diarrhea Allergies and Home Medications Allergies Coded Allergies: amoxicillin (Unverified Allergy, Mild, 01/29/09) Patient Home Medication List Home Medication List Reviewed: No Clinical Quality Measures DVT/VTE Risk/Contraindication: Risk Factor Score Per Nursin RFS Level Per Nursing on Admit: 4+=Very High DELMY RUIZ MD Jan 13, 2018 08:46
--- NOTE | 2018-01-13 09:37 | History & Physicial ([facility]) ---
HPI History of Present Illness: Generally healthy 47 year old female presented to ED yesterday with complaint of one week of fever, UTI and shortness of breath. She was seen approximately one week ago in the ED, diagnosed with a UTI and started on Bactrim. She followed up in clinic on 01/10, and reported that her symptoms did improve while on Bactrim, but returned when she finished the antibiotics. She was started on Omnicef, which she started taking on 01/11. On presentation to the ED she reports shortness of breath, diffuse cramping in her lower abdomen, and nausea and vomiting that has prevented her from being able to eat or drink much. Pt reports history of frequent UTI - in October was treated for UTI, which was culture positive for GBS. In the ED the patient reported to the provider that for the past few months she would have abdominal cramping and pain, and UTI symptoms, which would improve while she was on abx, then return shortly after her abx were completed. She was quite tachycardic and tachypnic on arrival last night, and had a slightly elevated D-dimer. A CTA was performed and a PE was ruled out. CT of her abdomen and pelvis was performed that showed free fluid in the pelvis and non-specific inflammatory changes. A normal appendix could not be identified. She did have multiple diverticuli of the sigmoid, but no definitive findings of diverticulitis. Given her non-specific findings on imaging, markedly elevated WBC of 27,000, tachycardia, tachypnea, and evidence of UTI, the patient was admitted for sepsis, treatment of her UTI, trich, possible PID, and consultation to Dr. Guidry with General Surgery and Dr. Patel with [facility] [employer] were placed. Source: patient, RN/MD, RN notes reviewed, old records Exam Limitations: no limitations Date seen by provider: Jan 13, 2018 Time Seen by Provider: 14:00 Attending Physician Nakita Landin APRN Consult Dr. Guidry - General Surgery, Dr. Patel - [facility] [employer] [facility] Date of Admission Jan 12, 2018 at 20:39 Home Medications Home Medications Reviewed patient Home Medication Reconciliation performed by pharmacy medication reconciliations physical therapist technician and/or nursing. Patients Allergies have been reviewed. Allergies Coded Allergies: amoxicillin (Unverified Allergy, Mild, 01/29/09) GDA-Wgnaim-Lhgicv Hx Patient Social History Marrital Status: Number of Children: 3 Number of living children: 3 Living Status: lives independently Employed/Student: employed Alcohol Use: Denies Use Recreational Drug Use: No Smoking Status: Current Everyday Smoker Cigaretts per day: 5 Type Used: Cigarettes 2nd Hand Smoke Exposure: Yes Recent Foreign Travel: No Contact w/other who traveled: No Recent Hopitalizations: No Recent Infectious Disease Expo: No Physical Abuse Screen: No Sexual Abuse: No Immunizations Up To Date Tetanus Booster (TDap): Unknown Past Medical History Anxiety Panic Disorder with Agoraphobia Iron Deficiency Anemia Chronic Fatigue Carpal Tunnel Left Wrist Asthma Vitamin D Deficiency Osteoarthritis of Spine with radiculopathy, lumbar region Past Surgical Hx: None Family Medical History Significant Family History: Asthma (paternal grandmother), Cancer (esophogeal cancer - ), CAD Over 55 Years Old (mother, at 65 due to CAD), Diabetes (maternal aunt), Psychiatric Problems (mother - depression; daughter with mental health issues) Family History: Arthritis 19 MOTHER Cancer of mouth 19 FATHER Cardiovascular disease 19 MOTHER Review of Systems ([facility]) Constitutional: see HPI EENTM: no symptoms reported Respiratory: no symptoms reported Cardiovascular: no symptoms reported Gastrointestinal: see HPI, abdominal pain, diarrhea, nausea, vomiting Genitourinary: see HPI : No Musculoskeletal: no symptoms reported Skin: no symptoms reported Psychiatric/Neurological: No Symptoms Reported Reviewed Test Results Reviewed Test Results Lab Laboratory Tests Test 01/12/18 16:35 01/12/18 16:43 01/12/18 20:12 01/13/18 06:55 Range/Units Urine Color FERNANDA H Urine Clarity SLIGHTLY CLOUDY Urine pH 6 5-9 Urine Specific Emerson 1.015 L 1.016-1.022 Urine Protein 3+ H NEGATIVE Urine Glucose (UA) NEGATIVE NEGATIVE Urine Ketones 3+ H NEGATIVE Urine Nitrite NEGATIVE NEGATIVE Urine Bilirubin 1+ H NEGATIVE Urine Urobilinogen 4 H NORMAL MG/DL Urine Leukocyte Esterase 3+ H NEGATIVE Urine RBC (Auto) 5+ H NEGATIVE Urine RBC 50-100 H /HPF Urine WBC >100 H /HPF Urine Squamous Epithelial Cells >50 H /HPF Urine Crystals NONE /LPF Urine Bacteria FEW H /HPF Urine Casts NONE /LPF Urine Mucus NEGATIVE /LPF Urine Trichomonas MODERATE H /HPF Urine Culture Indicated YES White Blood Count 25.2 H 15.8 H 4.3-11.0 10^3/uL Red Blood Count 5.04 4.12 L 4.35-5.85 10^6/uL Hemoglobin 14.9 12.3 11.5-16.0 G/DL Hematocrit 44 36 35-52 % Mean Corpuscular Volume 87 87 80-99 FL Mean Corpuscular Hemoglobin 30 30 25-34 PG Mean Corpuscular Hemoglobin Concent 34 34 32-36 G/DL Red Cell Distribution Width 15.3 H 15.1 H 10.0-14.5 % Platelet Count 338 277 130-400 10^3/uL Mean Platelet Volume 9.6 9.6 7.4-10.4 FL Neutrophils (%) (Auto) 88 H 82 H 42-75 % Lymphocytes (%) (Auto) 9 L 11 L 12-44 % Monocytes (%) (Auto) 4 7 0-12 % Eosinophils (%) (Auto) 0 1 0-10 % Basophils (%) (Auto) 0 0 0-10 % Neutrophils # (Auto) 22.2 H 13.0 H 1.8-7.8 X 10^3 Lymphocytes # (Auto) 2.1 1.7 1.0-4.0 X 10^3 Monocytes # (Auto) 0.9 1.1 H 0.0-1.0 X 10^3 Eosinophils # (Auto) 0.0 0.1 0.0-0.3 10^3/uL Basophils # (Auto) 0.0 0.0 0.0-0.1 10^3/uL Neutrophils % (Manual) 77 % Lymphocytes % (Manual) 16 % Monocytes % (Manual) 2 % Eosinophils % (Manual) 0 % Basophils % (Manual) 0 % Band Neutrophils 5 % Blood Morphology Comment NORMAL D-Dimer 7.52 H 0.00-0.49 UG/ML Sodium Level 137 135 135-145 MMOL/L Potassium Level 3.6 3.5 L 3.6-5.0 MMOL/L Chloride Level 101 104 98-107 MMOL/L Carbon Dioxide Level 24 21 21-32 MMOL/L Anion Gap 12 10 5-14 MMOL/L Blood Urea Nitrogen 8 7 7-18 MG/DL Creatinine 0.81 0.67 0.60-1.30 MG/DL Estimat Glomerular Filtration Rate > 60 > 60 BUN/Creatinine Ratio 10 10 Glucose Level 104 101 70-105 MG/DL Lactic Acid Level 1.75 0.50-2.00 MMOL/L Calcium Level 10.3 H 8.9 8.5-10.1 MG/DL Total Bilirubin 1.0 0.9 0.1-1.0 MG/DL Aspartate Amino Transf (AST/SGOT) 22 42 H 5-34 U/L Alanine Aminotransferase (ALT/SGPT) 18 34 0-55 U/L Alkaline Phosphatase 137 H 122 40-136 U/L Total Protein 8.0 5.7 L 6.4-8.2 GM/DL Albumin 3.9 3.0 L 3.2-4.5 GM/DL Serum Test, Qualitative NEGATIVE NEGATIVE Radiology Date of Exam: 01/12/18 CHEST PA/LAT (2 VIEW) INDICATION: Shortness of breath, chest pressure. COMPARISON: 07/19/2015. FINDINGS: There is poor inspiratory volume with some crowding of the lung markings and perihilar and basilar partial atelectasis. Heart size itself within normal limits. No gross overdistention of the vascularity. No pneumonia, effusion, or pneumothorax. IMPRESSION: Poor inspiration with zones of partial atelectasis, otherwise negative. Date of Exam: 01/12/18 CT KATE CHEST/NOANG ABD-PELV W INDICATION: Pain, shortness of breath, elevated d-dimer and tachycardia. Chest: FINDINGS: There are no intraluminal pulmonary arterial filling defects identified. The peripheral subsegmental branch opacification is somewhat limited on a technical basis but there were no findings at this study felt suggestive of PE. The aorta is patent and nonaneurysmal as well as nonacute. There are patchy perihilar and basilar zones of atelectasis with no effusion or pneumothorax. No acute chest wall pathology. No mass or adenopathy. Visualized upper abdomen nonacute. IMPRESSION: No evidence for PE. No acute aortic abnormality. Scattered zones of partial atelectasis with no acute pleural abnormality or thoracic effusion. No mass or adenopathy. Abdomen and pelvis: FINDINGS: There are extensive pelvic inflammatory changes with edema and congestion of the pelvic mesentery and small volume free fluid without discrete loculation. There are multiple diverticula at the sigmoid colon but the appearance was not convincing or classic for sigmoid diverticulitis. Segment of diverticulated colon was not substantially thickened. Cannot identify with confidence a normal appendix. The pelvic small bowel loops are somewhat matted and thickened which may be secondary or primary. No convincing evidence for extraluminal air or free gas. Some heterogeneous enlargement and cyst formation within the left ovary. The right adnexa itself appeared unremarkable. There are gallstones present without evidence for acute cholecystitis. The liver, spleen, adrenals and pancreas were unremarkable. Kidneys are unobstructed. There is no air within the urinary bladder. The bladder appeared normal. IMPRESSION: Extensive pelvic inflammatory changes with mesenteric edema and small volume of free fluid. Etiology is not clear at this exam. I cannot identify the appendix itself; however, the pericecal fat was not particularly inflamed when compared to the remaining pelvis. This could be reflective of gynecological pelvic inflammatory disease. Changes of sigmoid diverticulitis are an additional consideration. No obstruction, abscess or perforation. Date of Exam: 01/12/18 US NON OB TRANSVAGINAL [id number] INDICATION: Abdominal and pelvic pain. COMPARISON: CT abdomen and pelvis from the same day. FINDINGS: The uterus measures 10 x 7 x 5 cm. The ovaries are nonvisualized due to overlying bowel gas and inflammatory change. There is free fluid within the cul-de-sac. The endometrium is normal at 10 mm. IMPRESSION: 1. Unremarkable appearing uterus. 2. Nonvisualized ovaries due to overlying bowel gas and inflammatory change. 3. Free fluid within the cul-de-sac. Physical Exam-([facility]) Physical Exam Vital Signs VS - Last 72 Hours, by Label 01/12/18 01/12/18 01/12/18 01/12/18 16:15 18:39 21:04 22:01 Temp 99.0 98.5 99.2 Pulse 123 116 101 Resp 20 22 B/P (MAP) 137/74 (95) 125/71 Pulse Ox 94 O2 Delivery Room Air Room Air 01/12/18 01/13/18 01/13/18 01/13/18 23:48 01:00 03:10 04:05 Temp 98.5 98.0 98.0 Pulse 101 89 90 Resp 20 20 B/P (MAP) 118/65 (82) 109/77 (88) Pulse Ox 92 90 O2 Delivery Room Air Room Air 01/13/18 01/13/18 01/13/18 01/13/18 07:00 08:00 12:00 13:00 Temp 98.7 97.6 Pulse 84 92 73 80 Resp 20 18 B/P (MAP) 110/61 (77) 108/59 (75) Pulse Ox 95 92 O2 Delivery Room Air Room Air 01/13/18 01/13/18 01/13/18 14:22 16:17 19:07 Temp 98.3 Pulse 81 Resp 20 B/P (MAP) 124/64 (84) Pulse Ox 95 97 95 O2 Delivery Room Air Room Air Room Air Capillary Refill : Less Than 3 Seconds General Appearance: WD/WN, no apparent distress Eyes: Bilateral Eye Normal Inspection, Bilateral Eye EOMI HEENT: normal ENT inspection; No scleral icterus (R), No scleral icterus (L), No photophobia Neck: non-tender, full range of motion, supple, normal inspection Respiratory: chest non-tender, no respiratory distress, no accessory muscle use , wheezing Cardiovascular: regular rate, rhythm, no edema, no gallop Gastrointestinal: normal bowel sounds, non tender, soft, no organomegaly, no pulsatile mass; No distended, No guarding, No rebound Rectal: deferred Extremities: normal range of motion, non-tender, normal inspection, no pedal edema, no calf tenderness, normal capillary refill Neurologic/Psychiatric: 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, no motor/sensory deficits, alert, normal mood/affect, oriented x 3 Skin: normal color, warm/dry Assessment/Plan Assessment/Plan Admission Dx Sepsis UTI Trichomonas Abdominal Pain Nausea, Vomiting, Diarrhea Anxiety Elevated D-dimer Obesity, BMI 35.9 Hypokalemia Hypercalcemia Elevated Liver Enzymes Hypoproteinemia Hypoalbuminemia Admission Status: Inpatient Order (span 2 midnights) Reason for Inpatient Admission: treatment and stabilization of admission conditions Assessment & Plan Sepsis UTI Trichomonas Abdominal Pain Nausea, Vomiting, Diarrhea Anxiety Elevated D-dimer Obesity, BMI 35.9 Hypokalemia Hypercalcemia Elevated Liver Enzymes Hypoproteinemia Hypoalbuminemia 01/13 -pt admitted and started on rocephin and flagyl; wet prep positive for trich -- > flagyl sufficiently treated -pt denies vaginal symptoms or discharge or odor -GC/Chlam, Urine Cx, Blood Cx pending -afebrile, VSS -WBC trending down 25.2 -->15.8 -pt meets sepsis criteria based on her significant tachypnea and tachycardia, as well as her leukocytosis and UTI and trichomonas -suspect that some of her tachypnea on admission may have also been due to anxiety, as her clinic chart notes anxiety and agoraphobia -pt reports feeling much better today, her diet has been advanced to soft by Dr. Guidry and she is tolerating it well -will continue to trend labs tomorrow and await pending cultures and GC/ Chlamydia results -anticipate if patient continues to feel as well as she does at the time of exam , that she will be able to be discharged to home on PO medication -lovenox for DVT prophylaxis, ok to DC telemetry as pt has no heart disease/hx Clinical Quality Measures DVT/VTE Risk/Contraindication: Risk Factor Score Per Nursin RFS Level Per Nursing on Admit: 4+=Very High Copy Copies To 1: [facility]/NAKITA BRIAN DO Jan 13, 2018 09:37
[2018-01-13] MEDS ORDERED: clonazePAM 0.5 MG (KlonoPIN) TAB PO PRN (10:15)
[2018-01-13] MEDS ORDERED: RAMELTEON 8 MG (ROZEREM) TAB PO PRN (10:15)
[2018-01-13] MEDS ORDERED: KCL 20 MEQ TAB (K-DUR) PO NR (10:15)
[2018-01-13] MEDS: KETOROLAC 30 MG/ML VIAL IVP PRN ×2 (11:05→20:47)
--- NOTE | 2018-01-13 11:09 | Progress Note-Standard ---
Standard Progress Note Progress Notes/Assess & Plan Date Seen by Provider: Jan 13, 2018 Time Seen by Provider: 08:00 Progress/Assessment & Plan Wet prep was performed in the ED last evening. It appears that the result of that had been called to the ED physician in the late hours of the night. That report is not available to October 17 I reviewed the chart and labs this morning. That wet prep now shows trichomonads were present. This could certainly explain pelvic pain and inflammatory findings on the CT. I doubt that it would cause diarrhea but it could cause nausea. Also could cause increased number of white cells in her urine and blood in her urine. I suspect that would be another etiology for her significantly elevated white blood cell count but it is possible that that also was related to the trichomoniasis. This patient had been started on a course of Flagyl last evening. A 2 g oral dose of Flagyl would be adequate for treatment of trichomoniasis. Of course this patient's partner should be treated for Trichomonas as well. I remain available if I can be of any further assistance. Focused Exam Lactate Level 01/12/18 16:43: Lactic Acid Level 1.75 DELMY RUIZ MD Jan 13, 2018 11:09
[2018-01-13 12:00] VITALS: BP 108/59
--- NOTE | 2018-01-13 12:38 | Consultation ---
History of Present Illness History of Present Illness Patient Consulted On(olena/time) 01/13/18 12:36 Date Seen by Provider: Jan 13, 2018 Time Seen by Provider: 11:35 Reason for Visit: Unresolved lower abdominal pain History of Present Illness 1 week history of suprapubic pain with increasing severity and profound leukocytosis. CT scan shows slight thickening of the sigmoid colon and non- localized fluid in the cul-de-sac. SURGICAL MANAGER evaluation negative. Allergies and Home Medications Allergies Coded Allergies: amoxicillin (Unverified Allergy, Mild, 01/29/09) Patient Home Medication List Home Medication List Reviewed: Yes Past Vumjcwg-Mgjxeq-Anmkjs Hx Patient Social History Alcohol Use: Denies Use Recreational Drug Use: No Smoking Status: Current Everyday Smoker Type Used: Cigarettes 2nd Hand Smoke Exposure: Yes Recent Foreign Travel: No Contact w/Someone Who Travel: No Recent Infectious Disease Expo: No Recent Hopitalizations: No Physical Abuse: No Sexual Abuse: No Immunizations Up To Date Tetanus Booster (TDap): Unknown Seasonal Allergies Seasonal Allergies: No Past Medical History Surgeries: No Respiratory: Yes Asthma Currently Using CPAP: No Currently Using BIPAP: No Cardiac: No Neurological: Yes : No Genitourinary: No Gastrointestinal: No Musculoskeletal: Yes (CARPAL TUNNLE) Endocrine: No HEENT: No Cancer: No Psychosocial: Yes (PANIC ATTACKS) Anxiety Nursing Suicide Risk Score: 0 Integumentary: No Blood Disorders: No Adverse Reaction/Blood Tranf: No Family Medical History Arthritis 19 MOTHER Cancer of mouth 19 FATHER Cardiovascular disease 19 MOTHER Asthma (paternal grandmother), Cancer (esophogeal cancer - ), CAD Over 55 Years Old (mother, at 65 due to CAD), Diabetes (maternal aunt), Psychiatric Problems (mother - depression; daughter with mental health issues) Review of Systems-General Constitutional: no symptoms reported EENTM: no symptoms reported Respiratory: no symptoms reported Cardiovascular: no symptoms reported Gastrointestinal: see HPI Genitourinary: no symptoms reported Musculoskeletal: no symptoms reported Skin: no symptoms reported Psychiatric/Neurological: No Symptoms Reported Physical Exam-General Problems Physical Exam Vital Signs Vital Signs - First Documented 01/12/18 01/12/18 16:15 21:04 Temp 99.0 Pulse 123 Resp 20 B/P (MAP) 137/74 (95) Pulse Ox 94 O2 Delivery Room Air Capillary Refill : Less Than 3 Seconds General Appearance: no apparent distress Respiratory: lungs clear Cardiovascular: regular rate, rhythm Gastrointestinal: soft, tenderness Rectal: deferred Extremities: normal inspection Neurologic/Psychiatric: alert, oriented x 3 Skin: warm/dry Comments Localized tenderness over the left lower quadrant. No hernia. No evidence of peritonitis. Assessment/Plan Assessment/Plan Admission Diagnosis/Plan Lady with left lower quadrant pain and evidence of diverticulitis. White cell count decreased to 15,000. Hypokalemia, being replaced. We'll continue IV antibiotics and diet could be advanced. Admission Status: Inpatient Order (span 2 midnights) Clinical Quality Measures DVT/VTE Risk/Contraindication: Risk Factor Score Per Nursin RFS Level Per Nursing on Admit: 4+=Very High KASSY STEVENSON MD Jan 13, 2018 12:38 pm
[2018-01-13] MEDS: RT-ALBUTEROL SULF 2.5 MG/3 ML PRE-MIX VIAL INH SCH ×2 (14:22→19:07)
[2018-01-13] MEDS ORDERED: ENOXAPARIN 40 MG/0.4 ML (LOVENOX) SYR SC SCH (16:00)
[2018-01-13 16:17] VITALS: BP 124/64
[2018-01-13] MEDS: HYDROcodone/APAP 5 MG/325 MG (LORTAB) TAB PO PRN ×2 (16:24→20:47)
[2018-01-13] MEDS: meTOprolol TARTRATE 25 MG (LOPRESSOR) TABLET PO SCH (20:47)
[2018-01-13] MEDS ORDERED: cefTRIAXone 1 GM/NS 50 ML IVPB IV SCH ×2 (23:00)
[2018-01-14] VITALS: BP 97/50
[2018-01-14] MEDS: KETOROLAC 30 MG/ML VIAL IVP PRN (04:26)
[2018-01-14] MEDS: HYDROcodone/APAP 5 MG/325 MG (LORTAB) TAB PO PRN (04:26)
[2018-01-14] MEDS: metroNIDAZOLE 500 MG/100 ML IVPB (PRE-MIX) IV SCH (06:04)
[2018-01-14 06:50] LABS: BASOPHILS % (AUTO) 0 % (0-10); EOSINOPHILS # (AUTO) 0.2 10^3/uL (0.0-0.3); EOSINOPHILS % (AUTO) 2 % (0-10); HEMATOCRIT 35 % (35-52); HEMOGLOBIN 11.3 G/DL (11.5-16.0); LYMPHOCYTES # (AUTO) 1.7 X 10^3 (1.0-4.0); LYMPHOCYTES % (AUTO) 16 % (12-44); MEAN CORPUSCULAR HEMOGLOBIN 29 PG (25-34); MEAN CORPUSCULAR HGB CONC 33 G/DL (32-36); MEAN CORPUSCULAR VOLUME 87 FL (80-99); MEAN PLATELET VOLUME 9.5 FL (7.4-10.4); MONOCYTES # (AUTO) 0.9 X 10^3 (0.0-1.0); MONOCYTES % (AUTO) 8 % (0-12); NEUTROPHILS # (AUTO) 8.1 X 10^3 (1.8-7.8); NEUTROPHILS % (AUTO) 74 % (42-75); PLATELET COUNT 299 10^3/uL (130-400); RED BLOOD COUNT 3.95 10^6/uL (4.35-5.85); RED CELL DISTRIBUTION WIDTH 15.4 % (10.0-14.5); WHITE BLOOD COUNT 10.9 10^3/uL (4.3-11.0)
[2018-01-14 07:06] LABS: BUN/CREATININE RATIO 13; CARBON DIOXIDE 20 MMOL/L (21-32); CHLORIDE 105 MMOL/L (98-107); CREATININE SERUM 0.67 MG/DL (0.60-1.30); GFR ESTIMATED > 60; GLUCOSE 97 MG/DL (70-105); POTASSIUM 3.4 MMOL/L (3.6-5.0); SODIUM 136 MMOL/L (135-145)
[2018-01-14] MEDS: NS IV 1000 ML 1,000 ML IV SCH (07:22)
[2018-01-14] MEDS: RT-ALBUTEROL SULF 2.5 MG/3 ML PRE-MIX VIAL INH SCH (07:25)
[2018-01-14 08:00] VITALS: BP 105/62
[2018-01-14] MEDS ORDERED: KCL 20 MEQ TAB (K-DUR) PO NR (09:30)
[2018-01-14] MEDS ORDERED: CYCL10TA9 PO (09:50)
[2018-01-14] MEDS ORDERED: CLON0.5T13 PO (09:50)
[2018-01-14] MEDS ORDERED: METO-333 PO (09:51)
[2018-01-14] MEDS ORDERED: ESCI20TA45 PO (09:51)
[2018-01-14] MEDS ORDERED: ALBU6.7H8 IH (09:53)
[2018-01-14] MEDS: meTOprolol TARTRATE 25 MG (LOPRESSOR) TABLET PO SCH (10:54)
[2018-01-14] MEDS ORDERED: AZITHROMYCIN 250 MG TAB (ZITHROMAX) PO NR (11:15)
[2018-01-14] MEDS ORDERED: cefTRIAXone INJECTION 1,000 MG in NS (IVPB) 50 ML IV NR (11:15)
[2018-01-14] MEDS ORDERED: metroNIDAZOLE 500MG/100ML IVPB 100 ML IV NR (11:15)
--- NOTE | 2018-01-14 11:15 | Discharge Summary ---
Diagnosis/Chief Complaint Date of Admission Jan 12, 2018 at 20:39 Date of Discharge 01/14/18 Admission Diagnosis Admission Diagnosis Sepsis UTI Trichomonas Abdominal Pain Nausea, Vomiting, Diarrhea Anxiety Elevated D-dimer Obesity, BMI 35.9 Hypokalemia Hypercalcemia Elevated Liver Enzymes Hypoproteinemia Hypoalbuminemia Discharge Diagnosis Sepsis UTI Trichomonas Abdominal Pain Nausea, Vomiting, Diarrhea Anxiety Elevated D-dimer Obesity, BMI 35.9 Hypokalemia Hypercalcemia Elevated Liver Enzymes Hypoproteinemia Hypoalbuminemia 01/13 -pt admitted and started on rocephin and flagyl; wet prep positive for trich -- > flagyl sufficiently treated -pt denies vaginal symptoms or discharge or odor -GC/Chlam, Urine Cx, Blood Cx pending -afebrile, VSS -WBC trending down 25.2 -->15.8 -pt meets sepsis criteria based on her significant tachypnea and tachycardia, as well as her leukocytosis and UTI and trichomonas -suspect that some of her tachypnea on admission may have also been due to anxiety, as her clinic chart notes anxiety and agoraphobia -pt reports feeling much better today, her diet has been advanced to soft by Dr. Guidry and she is tolerating it well -will continue to trend labs tomorrow and await pending cultures and GC/ Chlamydia results -anticipate if patient continues to feel as well as she does at the time of exam , that she will be able to be discharged to home on PO medication -lovenox for DVT prophylaxis, ok to DC telemetry as pt has no heart disease/hx 01/14 -WBC 25.2 --> 15.8 --> 10.9 -blood cx with no growth to date -pt continues to feel well, pain well controlled without IV fentanyl for >24 hours -urine cx remains pending -tolerating soft diet -GC/Chlam remain pending -pt without visitors at the time of exam, discussed positive trich and that it is an STD, patient is adamant that she has not had any sexual partners in 7 years -pt has been given several doses of IV rocephin, will give 1 gram azithromycin prior to discharge since GC/Chlam results are not available -will give IV Rocephin and Flagyl prior to discharge, so that patient can merchandise pickup/[facility] tomorrow -discharge is okay with Dr. Guidry, who would like to have the patient discharged on Flagyl TID x7 days and follow up with him in 3 weeks, with plan for outpatient colonoscopy after her office visit -pt reports that she did not start having nausea, vomiting or diarrhea until after starting Omnicef; will discharge on Keflex as urine cx is not back yet -small amount of hydrocodone 5/325, ibuprofen 800 mg for pain -follow up in clinic this week with Win Morrison APRN Chief Complaint/HPI Chief Complaint/HPI Generally healthy 47 year old female presented to ED yesterday with complaint of one week of fever, UTI and shortness of breath. She was seen approximately one week ago in the ED, diagnosed with a UTI and started on Bactrim. She followed up in clinic on 01/10, and reported that her symptoms did improve while on Bactrim, but returned when she finished the antibiotics. She was started on Omnicef, which she started taking on 01/11. On presentation to the ED she reports shortness of breath, diffuse cramping in her lower abdomen, and nausea and vomiting that has prevented her from being able to eat or drink much. Pt reports history of frequent UTI - in October was treated for UTI, which was culture positive for GBS. In the ED the patient reported to the provider that for the past few months she would have abdominal cramping and pain, and UTI symptoms, which would improve while she was on abx, then return shortly after her abx were completed. She was quite tachycardic and tachypnic on arrival last night, and had a slightly elevated D-dimer. A CTA was performed and a PE was ruled out. CT of her abdomen and pelvis was performed that showed free fluid in the pelvis and non-specific inflammatory changes. A normal appendix could not be identified. She did have multiple diverticuli of the sigmoid, but no definitive findings of diverticulitis. Given her non-specific findings on imaging, markedly elevated WBC of 27,000, tachycardia, tachypnea, and evidence of UTI, the patient was admitted for sepsis, treatment of her UTI, trich, possible PID, and consultation to Dr. Guidry with General Surgery and Dr. Patel with EQUIPMENT ENGINEER were placed. Discharge Summary-Simple/Stand Consultations Dr. Guidry - General Surgery, Dr. Patel - EQUIPMENT ENGINEER Discharge Physical Examination Allergies: Coded Allergies: amoxicillin (Unverified Allergy, Mild, 01/29/09) Vitals & I&Os Vital Sign - Last 12Hours Date Time Temp Pulse Resp B/P (MAP) Pulse Ox O2 Delivery O2 Flow Rate FiO2 01/14/18 08:00 97.1 62 18 105/62 (76) 96 Room Air Intake and Output 01/14/18 00:00 Intake Total 3350 ml Output Total 2200 ml Balance 1150 ml General Appearance: Alert, Oriented X3, Cooperative, No Acute Distress HEENT: Atraumatic, EOMI, Mucous Memb Moist/[place] Respiratory: Other (wheezing, diminished in bases) Cardiovascular: Normal S1, Normal S2, Other (systolic murmur, soft, best heard at LSB) Abdominal: Normal Bowel Sounds, Soft, No Tenderness, No Masses Extremities: No Clubbing, No Cyanosis, No Edema Skin: No Rashes, No Significant Lesion Neuro: Normal Gait, Normal Speech, Normal Tone, Sensation Intact, Cranial Nerves 3-12 NL Psych/Mental Status: Mental Status NL, Mood NL Hospital Course See final discharge diagnosis. Labs Microbiology 01/12/18 Blood Culture - Preliminary, Resulted No growth 01/12/18 Blood Culture - Preliminary, Resulted No growth 01/12/18 Genital Culture - Preliminary, Resulted 01/12/18 Wet Prep - Final, Resulted 01/12/18 Urine Culture - Final, Complete Sent To [facility] See Comments Laboratory Tests Test 01/12/18 16:35 01/12/18 16:43 01/12/18 20:12 01/13/18 06:55 Range/Units Urine Color FERNANDA H Urine Clarity SLIGHTLY CLOUDY Urine pH 6 5-9 Urine Specific [place] 1.015 L 1.016-1.022 Urine Protein 3+ H NEGATIVE Urine Glucose (UA) NEGATIVE NEGATIVE Urine Ketones 3+ H NEGATIVE Urine Nitrite NEGATIVE NEGATIVE Urine Bilirubin 1+ H NEGATIVE Urine Urobilinogen 4 H NORMAL MG/DL Urine Leukocyte Esterase 3+ H NEGATIVE Urine RBC (Auto) 5+ H NEGATIVE Urine RBC 50-100 H /HPF Urine WBC >100 H /HPF Urine Squamous Epithelial Cells >50 H /HPF Urine Crystals NONE /LPF Urine Bacteria FEW H /HPF Urine Casts NONE /LPF Urine Mucus NEGATIVE /LPF Urine Trichomonas MODERATE H /HPF Urine Culture Indicated YES White Blood Count 25.2 H 15.8 H 4.3-11.0 10^3/uL Red Blood Count 5.04 4.12 L 4.35-5.85 10^6/uL Hemoglobin 14.9 12.3 11.5-16.0 G/DL Hematocrit 44 36 35-52 % Mean Corpuscular Volume 87 87 80-99 FL Mean Corpuscular Hemoglobin 30 30 25-34 PG Mean Corpuscular Hemoglobin Concent 34 34 32-36 G/DL Red Cell Distribution Width 15.3 H 15.1 H 10.0-14.5 % Platelet Count 338 277 130-400 10^3/uL Mean Platelet Volume 9.6 9.6 7.4-10.4 FL Neutrophils (%) (Auto) 88 H 82 H 42-75 % Lymphocytes (%) (Auto) 9 L 11 L 12-44 % Monocytes (%) (Auto) 4 7 0-12 % Eosinophils (%) (Auto) 0 1 0-10 % Basophils (%) (Auto) 0 0 0-10 % Neutrophils # (Auto) 22.2 H 13.0 H 1.8-7.8 X 10^3 Lymphocytes # (Auto) 2.1 1.7 1.0-4.0 X 10^3 Monocytes # (Auto) 0.9 1.1 H 0.0-1.0 X 10^3 Eosinophils # (Auto) 0.0 0.1 0.0-0.3 10^3/uL Basophils # (Auto) 0.0 0.0 0.0-0.1 10^3/uL Neutrophils % (Manual) 77 % Lymphocytes % (Manual) 16 % Monocytes % (Manual) 2 % Eosinophils % (Manual) 0 % Basophils % (Manual) 0 % Band Neutrophils 5 % Blood Morphology Comment NORMAL D-Dimer 7.52 H 0.00-0.49 UG/ML Sodium Level 137 135 135-145 MMOL/L Potassium Level 3.6 3.5 L 3.6-5.0 MMOL/L Chloride Level 101 104 98-107 MMOL/L Carbon Dioxide Level 24 21 21-32 MMOL/L Anion Gap 12 10 5-14 MMOL/L Blood Urea Nitrogen 8 7 7-18 MG/DL Creatinine 0.81 0.67 0.60-1.30 MG/DL Estimat Glomerular Filtration Rate > 60 > 60 BUN/Creatinine Ratio 10 10 Glucose Level 104 101 70-105 MG/DL Lactic Acid Level 1.75 0.50-2.00 MMOL/L Calcium Level 10.3 H 8.9 8.5-10.1 MG/DL Total Bilirubin 1.0 0.9 0.1-1.0 MG/DL Aspartate Amino Transf (AST/SGOT) 22 42 H 5-34 U/L Alanine Aminotransferase (ALT/SGPT) 18 34 0-55 U/L Alkaline Phosphatase 137 H 122 40-136 U/L Total Protein 8.0 5.7 L 6.4-8.2 GM/DL Albumin 3.9 3.0 L 3.2-4.5 GM/DL Serum Test, Qualitative NEGATIVE NEGATIVE Test 01/14/18 06:10 Range/Units White Blood Count 10.9 4.3-11.0 10^3/uL Red Blood Count 3.95 L 4.35-5.85 10^6/uL Hemoglobin 11.3 L 11.5-16.0 G/DL Hematocrit 35 35-52 % Mean Corpuscular Volume 87 80-99 FL Mean Corpuscular Hemoglobin 29 25-34 PG Mean Corpuscular Hemoglobin Concent 33 32-36 G/DL Red Cell Distribution Width 15.4 H 10.0-14.5 % Platelet Count 299 130-400 10^3/uL Mean Platelet Volume 9.5 7.4-10.4 FL Neutrophils (%) (Auto) 74 42-75 % Lymphocytes (%) (Auto) 16 12-44 % Monocytes (%) (Auto) 8 0-12 % Eosinophils (%) (Auto) 2 0-10 % Basophils (%) (Auto) 0 0-10 % Neutrophils # (Auto) 8.1 H 1.8-7.8 X 10^3 Lymphocytes # (Auto) 1.7 1.0-4.0 X 10^3 Monocytes # (Auto) 0.9 0.0-1.0 X 10^3 Eosinophils # (Auto) 0.2 0.0-0.3 10^3/uL Basophils # (Auto) 0.0 0.0-0.1 10^3/uL Sodium Level 136 135-145 MMOL/L Potassium Level 3.4 L 3.6-5.0 MMOL/L Chloride Level 105 98-107 MMOL/L Carbon Dioxide Level 20 L 21-32 MMOL/L Anion Gap 11 5-14 MMOL/L Blood Urea Nitrogen 9 7-18 MG/DL Creatinine 0.67 0.60-1.30 MG/DL Estimat Glomerular Filtration Rate > 60 BUN/Creatinine Ratio 13 Glucose Level 97 70-105 MG/DL Calcium Level 9.0 8.5-10.1 MG/DL Magnesium Level 2.0 1.8-2.4 MG/DL Pending Labs GC/Chlamydia, Urine Culture Radiology Reviewed Date of Exam: 01/12/18 CHEST PA/LAT (2 VIEW) INDICATION: Shortness of breath, chest pressure. COMPARISON: 07/19/2015. FINDINGS: There is poor inspiratory volume with some crowding of the lung markings and perihilar and basilar partial atelectasis. Heart size itself within normal limits. No gross overdistention of the vascularity. No pneumonia, effusion, or pneumothorax. IMPRESSION: Poor inspiration with zones of partial atelectasis, otherwise negative. Date of Exam: 01/12/18 CT KATE CHEST/NOANG ABD-PELV W INDICATION: Pain, shortness of breath, elevated d-dimer and tachycardia. Chest: FINDINGS: There are no intraluminal pulmonary arterial filling defects identified. The peripheral subsegmental branch opacification is somewhat limited on a technical basis but there were no findings at this study felt suggestive of PE. The aorta is patent and nonaneurysmal as well as nonacute. There are patchy perihilar and basilar zones of atelectasis with no effusion or pneumothorax. No acute chest wall pathology. No mass or adenopathy. Visualized upper abdomen nonacute. IMPRESSION: No evidence for PE. No acute aortic abnormality. Scattered zones of partial atelectasis with no acute pleural abnormality or thoracic effusion. No mass or adenopathy. Abdomen and pelvis: FINDINGS: There are extensive pelvic inflammatory changes with edema and congestion of the pelvic mesentery and small volume free fluid without discrete loculation. There are multiple diverticula at the sigmoid colon but the appearance was not convincing or classic for sigmoid diverticulitis. Segment of diverticulated colon was not substantially thickened. Cannot identify with confidence a normal appendix. The pelvic small bowel loops are somewhat matted and thickened which may be secondary or primary. No convincing evidence for extraluminal air or free gas. Some heterogeneous enlargement and cyst formation within the left ovary. The right adnexa itself appeared unremarkable. There are gallstones present without evidence for acute cholecystitis. The liver, spleen, adrenals and pancreas were unremarkable. Kidneys are unobstructed. There is no air within the urinary bladder. The bladder appeared normal. IMPRESSION: Extensive pelvic inflammatory changes with mesenteric edema and small volume of free fluid. Etiology is not clear at this exam. I cannot identify the appendix itself; however, the pericecal fat was not particularly inflamed when compared to the remaining pelvis. This could be reflective of gynecological pelvic inflammatory disease. Changes of sigmoid diverticulitis are an additional consideration. No obstruction, abscess or perforation. Date of Exam: 01/12/18 US NON OB TRANSVAGINAL [id number] INDICATION: Abdominal and pelvic pain. COMPARISON: CT abdomen and pelvis from the same day. FINDINGS: The uterus measures 10 x 7 x 5 cm. The ovaries are nonvisualized due to overlying bowel gas and inflammatory change. There is free fluid within the cul-de-sac. The endometrium is normal at 10 mm. IMPRESSION: 1. Unremarkable appearing uterus. 2. Nonvisualized ovaries due to overlying bowel gas and inflammatory change. 3. Free fluid within the cul-de-sac. Discharge Condition at discharge stable Instructions to patient/family Please see electronic discharge instructions given to patient. Discharge Medications Reviewed and agree with Discharge Medication list on patient's Discharge Instruction sheet Clinical Quality Measures DVT/VTE Risk/Contraindication: Risk Factor Score Per Nursin RFS Level Per Nursing on Admit: 4+=Very High Copy Copies To 1: [facility]/JABIER BRIAN DO Jan 14, 2018 11:15
[2018-01-14] MEDS ORDERED: ONDA4TAB11 PO (11:21)
[2018-01-14] MEDS ORDERED: ACHD5005 PO (11:21)
[2018-01-14] MEDS ORDERED: CEPH-507 PO (11:21)
[2018-01-14] MEDS ORDERED: IBUP-1780 PO (11:21)
[2018-01-14] MEDS ORDERED: METR500T PO (11:21)
--- NOTE | 2018-01-14 11:31 | Discharge Instructions ---
Discharge [facility] Discharge Medications New, Converted or Re-Newed RX: Other (abx and zofran transmitted to [facility] , pt given written rx for Hydrocodone and Ibuprofen) New Medications: Cephalexin (Keflex) 500 Mg Capsule 500 MG PO TID for 5 Days, #15 CAP 0 Refills Ibuprofen (Ibuprofen) 800 Mg Tablet 800 MG PO Q8H PRN for PAIN for 10 Days, #30 TAB 0 Refills Metronidazole (Flagyl) 500 Mg Tablet 500 MG PO TID for 7 Days, #21 TAB 0 Refills Ondansetron (Ondansetron Odt) 4 Mg Tab.rapdis 4 MG PO Q6H PRN for NAUSEA/VOMITING-1ST LINE for 7 Days, #30 TAB 0 Refills Hydrocodone Bit/Acetaminophen (Hydrocodone/Acetaminophen 5/325mg Tablet) 1 Tab Tab 1 TAB PO Q4H PRN for PAIN-MODERATE for 5 Days, #20 TAB Continued Medications: Albuterol Sulfate (Proventil Hfa) 6.7 Gm Hfa.aer.ad 2 PUFF IH Q4H PRN for SHORTNESS OF BREATH, GM Clonazepam (Clonazepam) 0.5 Mg Tablet 0.5 MG PO BID PRN for ANXIETY, TAB Cyclobenzaprine HCl (Cyclobenzaprine HCl) 10 Mg Tablet 10 MG PO BID PRN for MUSCLE SPASMS, TAB Escitalopram Oxalate (Escitalopram Oxalate) 20 Mg Tablet 20 MG PO DAILY, TAB Metoprolol Tartrate (Metoprolol Tartrate) 25 Mg Tablet 25 MG PO BID, TAB Patient Instructions Patient Instructions -take medications as prescribed -take antibiotics with food to help avoid nausea -if diarrhea and/or vomiting and/or severe nausea not relieved by medication returns while taking oral antibiotics, please call and notify office -call Monday for hospital discharge follow up with Nadeen SCHILLING this week -follow up with Dr. Guidry in his office in 3 weeks, with plan to schedule outpatient colonoscopy to evaluate sigmoid diverticula noted on CT scan -would recommend avoiding spicy foods, nuts and popcorn for the next 7 days -drink at least 64 ounces of water per day, and an additional 8 ounces for each ounce of caffeine you drink, as that is very irritating to the bladder -NO ALCOHOL while taking Flagyl, it will cause you to be EXTREMELY ILL Goal/Follow Up Appt: Call for appt with Win SCHILLING this week in clinic Dr. Guidry in 3 weeks Return to The Hospital For: chest pain or pressure, shortness of breath out of normal for you that is not relieved by rest and use of your inhaler, fever >101 that does not improve with tylenol or ibuprofen and lasts for more than 3 consecutive days, nausea or vomiting that prevents you from keeping down clear liquids or medications for more than 12-24 hours, severe pain unrelieved by routine measures and prescribed medication, if directed by [facility] provider or with any other emergent complaints or concerns Activity & Diet Discharge Diet: Regular Diet (as tolerated; avoid spicy foods, nuts, popcorn ) Activity as Tolerated: Yes Copy Copies To 1: [facility]/JABIER BRIAN DO Jan 14, 2018 11:27
== END 2018-01-14 13:45 | disposition home or self-care (01) | DRG 872 ==
LOC: EDUNIT# 16:10 → ER 16:11 → 4TH 20:39
PROVIDERS: ADMIT Family Medicine; ATTEND Family Medicine
DX: A41.9 Sepsis, unspecified organism (principal); N39.0 Urinary tract infection, site not specified; A59.01 Trichomonal vulvovaginitis; K57.30 Diverticulosis of large intestine without perforation or abscess without bleeding; E87.6 Hypokalemia; R74.8 Abnormal levels of other serum enzymes; E77.8 Other disorders of glycoprotein metabolism; E88.09 Other disorders of plasma-protein metabolism, not elsewhere classified; R79.1 Abnormal coagulation profile; F17.210 Nicotine dependence, cigarettes, uncomplicated; F40.01 Agoraphobia with panic disorder; D50.9 Iron deficiency anemia, unspecified; R53.82 Chronic fatigue, unspecified; J45.909 Unspecified asthma, uncomplicated; E55.9 Vitamin D deficiency, unspecified; M47.26 Other spondylosis with radiculopathy, lumbar region; E66.9 Obesity, unspecified; Z68.35 Body mass index [BMI] 35.0-35.9, adult
CPT/HCPCS: 36415; 71046; 71275; 74177; 76830; 80048; 80053; 81000; 83605; 83735; 84703; 85007; 85025; 85027; 85379; 87040; 87070; 87088; 87210; 87491; 87591; 94640; 94760; 96361; 96374; 96375

== ENCOUNTER → 2018-01-30 | Outpatient (CLI) | payer SELFPAY ==
[~2018-01-30] MED LIST changes: +ACHD5005 PO; +ALBU6.7H8 IH; +CEPH-507 PO; +CLON0.5T13 PO; +CYCL10TA9 PO; +ESCI20TA45 PO; +IBUP-1780 PO; +METO-333 PO; +METR500T PO; +ONDA4TAB11 PO
--- NOTE | 2018-01-30 18:31 | Diagnostic Imaging Report ---
PROCEDURE: CT abdomen and pelvis without contrast. TECHNIQUE: Multiple contiguous axial images were obtained through the abdomen and pelvis without the use of intravenous contrast. INDICATION: Abdominal and pelvic pain. The previous CT chest, abdomen and pelvis exams of 01/12/2018 noted extensive pelvic inflammatory changes with mesenteric edema and a small volume of free fluid. The precise etiology of this was not certain. It was unclear whether this was related to diverticulitis or even appendicitis. On this exam, the inflammatory changes involving the pelvis have diminished somewhat. The fluid collection in the left lower quadrant seen previously measuring 2.7 x 8.1 cm has resolved. The prior exam revealed a second fluid collection immediately posterior to the uterus measuring 2.6 x 3.4 cm. That fluid collection is still present but has decreased in size and now measures 1.9 x 2.8 cm. There still distortion of the mesenteric fat in this area indicating edema/inflammation. I suspect that this is related to diverticulitis as there are are several diverticula in the sigmoid colon. The appendix also seems to be visualized on this exam and does not appear to be abnormally thickened. In addition, the dilated gas and fluid-filled segments of small bowel seen on the prior exam have resolved. The uterus is stable in size when compared with the prior exam. The left adnexal soft tissue density seen previously is again evident. This may represent the left ovary with an associated left ovarian cyst. The right ovary was not well-imaged. The urinary bladder is grossly unremarkable. The liver, spleen, pancreas, kidneys, aorta and inferior vena cava and adrenal glands appear stable when compared to the prior exam. The low-density nodule associated with the right adrenal gland seen previously is again evident and unchanged. This finding was also present on the CT chest exam of 08/06/2015 and has not changed. As noted on the prior exam, there is cholelithiasis. The stomach is partially filled with fluid and consequently difficult to assess. The lung bases are clear. The bone windows show no evidence for a fracture or for a destructive lesion. There is severe degenerative disc and bony disease at L4-5. IMPRESSION: 1. The appearance of the pelvis has improved since the prior exam as the inflammatory changes seen previously have diminished. However, there is still distortion of the mesenteric fat in this area indicating edema/inflammation and there may be an element of diverticula still present. The small fluid collection posterior to the uterus seen previously is still present although it has decreased in size. 2. There is a question of a cyst associated with the left ovary. If further study is desired, an ultrasound would be recommended. 3. The appendix was visualized and is not abnormally thickened. 4. There is cholelithiasis but there is no acute abnormality Identified. 5. The small nodule associated with the right adrenal gland appears stable and is most likely a benign process. Dictated by: Dictated on workstation # [id number]
== END ==
LOC: RAD 17:37
PROVIDERS: ATTEND Nurse Practitioner Family
DX: K57.92 Diverticulitis of intestine, part unspecified, without perforation or abscess without bleeding (principal); E27.8 Other specified disorders of adrenal gland; K76.89 Other specified diseases of liver; K80.20 Calculus of gallbladder without cholecystitis without obstruction
CPT/HCPCS: 74176

== ENCOUNTER 2020-03-19 12:33 | Inpatient (IN) | payer SELFPAY ==
[2020-03-19] VITALS (11 sets, daily range): BP systolic 114–140; BP diastolic 61–89
[~2020-03-19] VITALS: Ht 190.5 cm; Wt 126.8 kg
[~2020-03-19 12:33] MED LIST changes: -CLON0.5T13 PO; +CLON0.5T4 PO
--- NOTE | 2020-03-19 12:54 | ED Abdominal Pain ---
General Stated Complaint: UTI;LOWER ABD PAIN;FEVER Source of Information: Patient Exam Limitations: No Limitations History of Present Illness Date Seen by Provider: Mar 19, 2020 Time Seen by Provider: 12:52 Initial Comments To ER with reports of suprapubic abdominal pain for 3-4 days, given a prescription for ciprofloxacin plus metronidazole and denies much improvement. This was for a presumptive diagnosis of UTI plus diverticulitis. She has not had any imaging at. She had a fever up to 102 at home a few days ago, today she is tachycardic and presents to ER because of worsening pain. Timing/Duration: 3-4 Days Severity/Quality: Moderate Location: Suprapubic Radiation: No Radiation Activities at Onset: None Allergies and Home Medications Allergies Coded Allergies: amoxicillin (Unverified Allergy, Mild, 01/29/09) trazodone (Verified Allergy, Unknown, 03/19/20) Home Medications Albuterol Sulfate 6.7 Gm Hfa.aer.ad, 2 PUFF IH Q4H PRN for SHORTNESS OF BREATH, (Reported) Cephalexin 500 Mg Capsule, 500 MG PO TID Prescribed by: JABIER COLLINS on 01/14/181120 Clonazepam 0.5 Mg Tablet, 0.5 MG PO BID PRN for ANXIETY, (Reported) Cyclobenzaprine HCl 10 Mg Tablet, 10 MG PO BID PRN for MUSCLE SPASMS, (Reported) Escitalopram Oxalate 20 Mg Tablet, 20 MG PO DAILY, (Reported) Hydrocodone Bit/Acetaminophen 1 Tab Tab, 1 TAB PO Q4H PRN for PAIN-MODERATE Prescribed by: JABIER COLLINS on 01/14/18 112 Ibuprofen 800 Mg Tablet, 800 MG PO Q8H PRN for PAIN Prescribed by: JABIER COLLINS on 01/14/18 112 Metoprolol Tartrate 25 Mg Tablet, 25 MG PO BID, (Reported) Metronidazole 500 Mg Tablet, 500 MG PO TID Prescribed by: JABIER COLLINS on 01/14/181120 Ondansetron 4 Mg Tab.rapdis, 4 MG PO Q6H PRN for NAUSEA/VOMITING-1ST LINE Prescribed by: JABIER COLLINS on 01/14/18 112 Patient Home Medication List Home Medication List Reviewed: Yes Review of Systems Review of Systems Constitutional: see HPI EENTM: No Symptoms Reported Respiratory: No Symptoms Reported Cardiovascular: No Symptoms Reported Gastrointestinal: See HPI, Abdominal Pain Genitourinary: No Symptoms Reported Musculoskeletal: no symptoms reported Skin: no symptoms reported Psychiatric/Neurological: No Symptoms Reported Endocrine: No Symptoms Reported Hematologic/Lymphatic: No Symptoms Reported Past Nznehxi-Uwqvgy-Lkfeol Hx Patient Social History Type Used: Cigarettes 2nd Hand Smoke Exposure: Yes Recent Foreign Travel: No Contact w/Someone Who Travel: No Recent Hopitalizations: No Immunizations Up To Date Tetanus Booster (TDap): Unknown Seasonal Allergies Seasonal Allergies: No Past Medical History Surgeries: No Respiratory: Yes Asthma Currently Using CPAP: No Currently Using BIPAP: No Cardiac: No Neurological: Yes Genitourinary: No Gastrointestinal: No Musculoskeletal: Yes (CARPAL TUNNLE) Endocrine: No HEENT: No Cancer: No Psychosocial: Yes (PANIC ATTACKS) Anxiety Integumentary: No Blood Disorders: No Adverse Reaction/Blood Tranf: No Family Medical History Arthritis 19 MOTHER Cancer of mouth 19 FATHER Cardiovascular disease 19 MOTHER Asthma, Cancer, CAD Over 55 Years Old, Diabetes, Psychiatric Problems Physical Exam Vital Signs Vital Signs - First Documented 03/19/20 12:35 Temp 36.2 Pulse 116 Resp 22 B/P (MAP) 136/86 (103) Pulse Ox 99 O2 Delivery Room Air Capillary Refill : Height/Weight/BMI Height: 6'3.00" Weight: 287lbs. 6.0oz. [id number]; 35.9 BMI Method:Stated General Appearance: WD/WN, no apparent distress Neck: non-tender, full range of motion Respiratory: no respiratory distress, no accessory muscle use Cardiovascular: regular rate, rhythm, no murmur Gastrointestinal: normal bowel sounds, soft, tenderness Genital/Rectal: other (exam with Meryl RN at the bedside reveals some slight cervical motion tenderness with a rather large amount of yellow mucousy cervical discharge) Extremities: normal range of motion, non-tender Neurologic/Psychiatric: alert, normal mood/affect, oriented x 3 Skin: normal color, warm/dry Focused Exam Lactate Level 03/19/20 13:25: Lactic Acid Level 1.63 Lactic Acid Level Laboratory Tests Test 03/19/20 13:25 Lactic Acid Level 1.63 MMOL/L (0.50-2.00) Progress/Results/Core Measures Results/Orders Lab Results Laboratory Tests Test 03/19/20 12:36 03/19/20 12:55 03/19/20 13:25 03/19/20 13:50 Range/Units Urine Color FERNANDA H Urine Clarity CLEAR Urine pH 5.5 5-9 Urine Specific [place] 1.020 1.016-1.022 Urine Protein 2+ H NEGATIVE Urine Glucose (UA) NEGATIVE NEGATIVE Urine Ketones 3+ H NEGATIVE Urine Nitrite NEGATIVE NEGATIVE Urine Bilirubin 2+ H NEGATIVE Urine Urobilinogen >=8.0 < = 1.0 MG/DL Urine Leukocyte Esterase 2+ H NEGATIVE Urine RBC (Auto) 3+ H NEGATIVE Urine RBC 0-2 /HPF Urine WBC 10-25 H /HPF Urine Squamous Epithelial Cells 10-25 H /HPF Urine Crystals NONE /LPF Urine Bacteria FEW H /HPF Urine Casts NONE /LPF Urine Mucus NEGATIVE /LPF Urine Culture Indicated YES White Blood Count 18.5 H 4.3-11.0 10^3/uL Red Blood Count 5.23 H 3.80-5.11 10^6/uL Hemoglobin 16.2 H 11.5-16.0 g/dL Hematocrit 48 35-52 % Mean Corpuscular Volume 91 80-99 fL Mean Corpuscular Hemoglobin 31 25-34 pg Mean Corpuscular Hemoglobin Concent 34 32-36 g/dL Red Cell Distribution Width 13.4 10.0-14.5 % Platelet Count 349 130-400 10^3/uL Mean Platelet Volume 9.5 9.0-12.2 fL Immature Granulocyte % (Auto) 1 % Neutrophils (%) (Auto) 81 H 42-75 % Lymphocytes (%) (Auto) 13 12-44 % Monocytes (%) (Auto) 6 0-12 % Eosinophils (%) (Auto) 0 0-10 % Basophils (%) (Auto) 0 0-10 % Neutrophils # (Auto) 14.9 H 1.8-7.8 10^3/uL Lymphocytes # (Auto) 2.3 1.0-4.0 10^3/uL Monocytes # (Auto) 1.0 0.0-1.0 10^3/uL Eosinophils # (Auto) 0.0 0.0-0.3 10^3/uL Basophils # (Auto) 0.1 0.0-0.1 10^3/uL Immature Granulocyte # (Auto) 0.1 0.0-0.1 10^3/uL Neutrophils % (Manual) 80 % Lymphocytes % (Manual) 16 % Monocytes % (Manual) 4 % Blood Morphology Comment NORMAL Sodium Level 132 L 135-145 MMOL/L Potassium Level 3.7 3.6-5.0 MMOL/L Chloride Level 99 98-107 MMOL/L Carbon Dioxide Level 19 L 21-32 MMOL/L Anion Gap 14 5-14 MMOL/L Blood Urea Nitrogen 7 7-18 MG/DL Creatinine 0.71 0.60-1.30 MG/DL Estimat Glomerular Filtration Rate > 60 BUN/Creatinine Ratio 10 Glucose Level 90 70-105 MG/DL Lactic Acid Level 1.63 0.50-2.00 MMOL/L Calcium Level 8.9 8.5-10.1 MG/DL Corrected Calcium 9.2 8.5-10.1 MG/DL Total Bilirubin 0.9 0.1-1.0 MG/DL Aspartate Amino Transf (AST/SGOT) 33 5-34 U/L Alkaline Phosphatase 195 H 40-136 U/L Total Protein 7.1 6.4-8.2 GM/DL Albumin 3.6 3.2-4.5 GM/DL My Orders Orders - LAWSON GUERRERO [employer] Cbc With Automated Diff (03/19/20 12:49) Comprehensive Metabolic Panel (03/19/20 12:49) Ua Culture If Indicated (03/19/20 12:49) Ed Iv/Invasive Line Start (03/19/20 12:49) Ct Abdomen/Pelvis W (03/19/20 12:49) Blood Culture (03/19/20 12:49) Lactic Acid Analyzer (03/19/20 12:49) Ns Iv 1000 Ml (Sodium Chloride 0.9%) (03/19/20 13:00) Fentanyl Injection (Sublimaze Injection (03/19/20 13:00) Iohexol Injection (Omnipaque 350 Mg/Ml 1 (03/19/20 13:00) Received Contrast (Hold Metformin- Contr (03/19/20 13:00) Ns (Ivpb) (Sodium Chloride 0.9% Ivpb Bag (03/19/20 13:00) Urine Culture (03/19/20 12:36) Manual Differential (03/19/20 12:55) Cefepime Injection (Maxipime Injection) (03/19/20 13:45) Metronidazole 500mg/100ml Ivpb (Flagyl 5 (03/19/20 13:45) Ceftriaxone For Iv Use (Rocephin For I (03/19/20 14:00) Azithromycin Tablet (Zithromax Tablet) (03/20/20 09:00) Wet Prep (03/19/20 13:51) Genital Culture (03/19/20 13:51) Neisseria Gonorrhea Swab (03/19/20 13:51) Chlamydia Trachomatis Swab (03/19/20 13:51) Medications Given in ED Current Medications Medications Dose Ordered Sig/Juan Route Start Time Stop Time Status Last Admin Dose Admin Fentanyl Citrate 50 mcg ONCE ONCE IVP 03/19/20 13:00 03/19/20 13:01 DC 03/19/20 13:30 50 MCG Iohexol 100 ml ONCE ONCE IV 03/19/20 13:00 03/19/20 13:01 DC 03/19/20 13:20 100 ML Sodium Chloride 100 ml ONCE ONCE IV 03/19/20 13:00 03/19/20 13:01 DC 03/19/20 13:20 80 ML Vital Signs/I&O 03/19/20 12:35 Temp 36.2 Pulse 116 Resp 22 B/P (MAP) 136/86 (103) Pulse Ox 99 O2 Delivery Room Air Departure Communication (Admissions) 1400-Unable to tell if this is tubo-ovarian abscess and gynecologic in nature or colonic in nature. Spoke with Dr. Parekh, would like me to speak with Dr. IBRAHIM. Awaiting a call back from him. Patient does need admitted for IV antibiotics as she meets sepsis criteria. I did go ahead and do a gram of Rocephin and 1 g of azithromycin here in the emergency room. Spoke with Dr. IBRAHIM, we'll admit on Ancef plus Flagyl, pain control, nothing by mouth status. Impression Primary Impression: Pelvic adnexal fluid collection Additional Impression: Sepsis Disposition: ADMITTED INPATIENT Condition: Stable Admissions Decision to Admit Reason: Admit from ER (General) Decision to Admit/Date: Mar 19, 2020 Time/Decision to Admit Time: 14:00 Departure-Patient Inst. Referrals: [facility] (PCP/Family) Primary Care Physician LAWSON GUERRERO APRN Mar 19, 2020 12:53
[2020-03-19 12:55] LABS: BILIRUBIN,URINE 2+ (NEGATIVE); CLARITY,URINE CLEAR; COLOR,URINE AMBER; GLUCOSE, URINE (UA) NEGATIVE (NEGATIVE); KETONES,URINE 3+ (NEGATIVE); LEUKOCYTE ESTERASE ,URINE 2+ (NEGATIVE); NITRITE,URINE NEGATIVE (NEGATIVE); PH,URINE 5.5 (5-9); PROTEIN,URINE 2+ (NEGATIVE)
[2020-03-19] MEDS ORDERED: fentaNYL INJECTION 100 MCG/2 ML AMP IVP ONE ×2 (13:00→14:30)
[2020-03-19] MEDS ORDERED: HOLD METFORMIN - RECEIVED CONTRAST 20 ML VIAL IV SCH (13:00)
[2020-03-19] MEDS ORDERED: NS 100 ML (IVPB) BAG IV ONE (13:00)
[2020-03-19] MEDS ORDERED: NS IV 1000 ML 1,000 ML IV SCH (13:00)
[2020-03-19] MEDS ORDERED: IOHEXOL 350 MG/ML 100 ML (OMNIPAQUE 350) VIAL IV ONE (13:00)
[2020-03-19 13:04] LABS: BACTERIA,URINE FEW /HPF; RBC,URINE 0-2 /HPF
[2020-03-19 13:10] LABS: BASOPHILS # (AUTO) 0.1 10^3/uL (0.0-0.1); BASOPHILS % (AUTO) 0 % (0-10); EOSINOPHILS % (AUTO) 0 % (0-10); HEMATOCRIT 48 % (35-52); HEMOGLOBIN 16.2 g/dL (11.5-16.0); LYMPHOCYTES # (AUTO) 2.3 10^3/uL (1.0-4.0); LYMPHOCYTES % (AUTO) 13 % (12-44); MEAN CORPUSCULAR HEMOGLOBIN 31 pg (25-34); MEAN CORPUSCULAR HGB CONC 34 g/dL (32-36); MEAN CORPUSCULAR VOLUME 91 fL (80-99); MEAN PLATELET VOLUME 9.5 fL (9.0-12.2); MONOCYTES % (AUTO) 6 % (0-12); NEUTROPHILS # (AUTO) 14.9 10^3/uL (1.8-7.8); NEUTROPHILS % (AUTO) 81 % (42-75); PLATELET COUNT 349 10^3/uL (130-400); WHITE BLOOD COUNT 18.5 10^3/uL (4.3-11.0)
[2020-03-19] MEDS ORDERED: CEFEPIME INJECTION 2,000 MG in WATER (STERILE) FOR INJECTION 20 ML IV ONE (13:45)
[2020-03-19] MEDS ORDERED: metroNIDAZOLE 500MG/100ML IVPB 100 ML IV ONE (13:45)
--- NOTE | 2020-03-19 13:45 | Diagnostic Imaging Report ---
PROCEDURE: CT abdomen and pelvis with contrast. TECHNIQUE: Multiple contiguous axial images were obtained through the abdomen and pelvis after administration of intravenous contrast. Auto Exposure Controls were utilized during the CT exam to meet ALARA standards for radiation dose reduction. All CT scans use one or more of the following dose optimizing techniques: automated exposure control, MA and/or KvP adjustment based on patient size and exam type or iterative reconstruction. INDICATION: Suprapubic abdominal pain Comparison is made to study of 01/30/2018. There are scattered subcentimeter subpleural nodules in both lung bases similar to previous study. There is mild low-density throughout the liver indicating steatosis. Cholelithiasis is again demonstrated. There is no significant biliary ductal dilatation. No pancreatic or splenic lesions identified. Left adrenal gland has a normal appearance. There is an approximately 1.3 cm low-density nodule in the right adrenal gland. May be subcentimeter cyst in the mid portions of the left kidney. Note is made of subcutaneous nodule in the lower thoracic back region measuring approximately 2 cm in diameter. This may be slightly increased in size compared to previous study. There is no free fluid seen within the abdomen or pelvis. There has been an increase in inflammation and mural thickening at the level of sigmoid colon. There has also been an overall increase in complex left adnexal region fluid collection possibly related to abscess. This could be secondary to colonic inflammation and perforation or possible abscess of adnexal origin. This measures approximately 6.5 x 6.3 cm and is inseparable from the uterus and broad ligament. There is also an approximately 1.8 cm cystic-appearing nodule to the right midline at the level of the cervix which may represent nabothian cysts. Partially opacified urinary bladder is unremarkable without evidence of perivesicular contrast extravasation. IMPRESSION: Complex fluid collection in the left adnexal region could represent abscess possibly arising from perforated diverticulitis or from primary adnexal region such as tubo-ovarian abscess. There is mild surrounding edema and fluid. Otherwise, no definite acute abnormality or significant adverse change is seen. Note is made of scattered subpleural nodules and cholelithiasis as well as mildly prominent retroperitoneal lymph nodes which could be reactive in nature. Dictated by: Dictated on workstation # [id number]
[2020-03-19 13:49] LABS: LYMPHOCYTES % (MANUAL) 16 %; MONOCYTES % (MANUAL) 4 %; NEUTROPHILS % (MANUAL) 80 %; RBC MORPH NORMAL
[2020-03-19 13:55] LABS: ALBUMIN 3.6 GM/DL (3.2-4.5); CHLORIDE 99 MMOL/L (98-107); POTASSIUM 3.7 MMOL/L (3.6-5.0); SODIUM 132 MMOL/L (135-145)
[2020-03-19 13:56] LABS: CALCIUM 8.9 MG/DL (8.5-10.1)
[2020-03-19 13:57] LABS: GLUCOSE 90 MG/DL (70-105); TOTAL PROTEIN 7.1 GM/DL (6.4-8.2)
[2020-03-19 13:58] LABS: CARBON DIOXIDE 19 MMOL/L (21-32)
[2020-03-19 13:59] LABS: BILIRUBIN,TOTAL 0.9 MG/DL (0.1-1.0)
[2020-03-19 14:00] LABS: ALKALINE PHOSPHATASE 195 U/L (40-136)
[2020-03-19] MEDS ORDERED: cefTRIAXone FOR IV USE 1,000 MG in WATER (STERILE) FOR INJECTION 10 ML IV ONE (14:00)
[2020-03-19 14:01] LABS: CREATININE SERUM 0.71 MG/DL (0.60-1.30); GFR ESTIMATED > 60
[2020-03-19 14:02] LABS: BUN/CREATININE RATIO 10
[2020-03-19 14:04] LABS: ALANINE AMINOTRANSFERASE 61 U/L (0-55)
[2020-03-19] MEDS ORDERED: AZITHROMYCIN 250 MG TAB (ZITHROMAX) PO ONE (14:12)
--- NOTE | 2020-03-19 14:53 | NUR ---
JOAO ESPITIA admitted to room 410-1, with an admitting diagnosis of SEPSIS AND PELVIC FLUID COLLECTION, on 03/19/20 from ED via WHEELCHAIR, accompanied by ED STAFF. JOAO ESPITIA introduced to surroundings, call light, bed controls, phone, TV, temperature control, lights, meal times, smoking policy, visitor policy, side rail policy, bathrooms and showers. Patient Rights given to patient in the handbook. JOAO ESPITIA verbalizes understanding that [facility] is not responsible for the loss or damage to any personal effects or valuables that are kept in the patients posession during their hospitalization. JOAO ESPITIA verbalizes understanding of Interdisciplinary Patient Education. Patient and/or family were informed about the Rapid Response Team and its purpose.
[2020-03-19] MEDS ORDERED: LACTATED RINGERS 1,000 ML IV ONE (15:14)
[2020-03-19] MEDS ORDERED: ONDANSETRON 4 MG/2 ML (SDV) Z0FRAN ONE ×2 (15:14→18:47)
[2020-03-19] MEDS ORDERED: HYDROmorphone 2 MG/ML VIAL (DILAUDID) ONE (15:14)
[2020-03-19] MEDS ORDERED: IBUPROFEN 600 MG (MOTRIN) TAB PO PRN (15:30)
[2020-03-19] MEDS ORDERED: ONDANSETRON 4 MG/2 ML (SDV) Z0FRAN IV PRN (15:30)
[2020-03-19] MEDS: LACTATED RINGERS 1,000 ML IV SCH ×2 (15:33→21:55)
[2020-03-19] MEDS: NICOTINE 21 MG (NICODERM) PATCH TD SCH (15:46)
[2020-03-19] MEDS ORDERED: fentaNYL INJECTION 100 MCG/2 ML AMP IV PRN (16:30)
[2020-03-19] MEDS: ceFAZolin 1,000 MG/SWFI 10 ML IV PUSH IV SCH ×2 (18:04)
[2020-03-19] MEDS ORDERED: LACTATED RINGERS 1,000 ML IV PRN (18:12)
[2020-03-19] MEDS: HYDROmorphone 2 MG/ML VIAL (DILAUDID) IV PRN (18:20)
--- NOTE | 2020-03-19 18:43 | History & Physical-Surgical ---
HPO-Surgical History of Present Illness Chief Complaint: Pt reports being diagnosed with diverticulitis and UTI yesterday. Pt reports fever of 102.4 at home and increased pain. Pt taking flagyl, cyclobenzaprine and cipro. Diagnosis/Surgical Indication: Left adnexal fluid collection, suspected TOA, Acute onset pelvic pain Procedure: Diagnostic laparoscopy Date of Surgery: Mar 19, 2020 Weight (Pounds): 287 Weight (Ounces): 6.0 Height (Feet): 6 Height (Inches): 3.00 Allergies and Home Medications Allergies Coded Allergies: amoxicillin (Unverified Allergy, Mild, 01/29/09) trazodone (Verified Allergy, Unknown, 03/19/20) Home Medications Albuterol Sulfate 6.7 Gm Hfa.aer.ad, 2 PUFF IH Q4H PRN for SHORTNESS OF BREATH, (Reported) Cephalexin 500 Mg Capsule, 500 MG PO TID Prescribed by: JABIER COLLINS on 01/14/18 112 Clonazepam 0.5 Mg Tablet, 0.5 MG PO BID PRN for ANXIETY, (Reported) Cyclobenzaprine HCl 10 Mg Tablet, 10 MG PO BID PRN for MUSCLE SPASMS, (Reported) Escitalopram Oxalate 20 Mg Tablet, 20 MG PO DAILY, (Reported) Hydrocodone Bit/Acetaminophen 1 Tab Tab, 1 TAB PO Q4H PRN for PAIN-MODERATE Prescribed by: JABIER COLLINS on 01/14/18 112 Ibuprofen 800 Mg Tablet, 800 MG PO Q8H PRN for PAIN Prescribed by: JABIER COLLINS on 01/14/18 112 Metoprolol Tartrate 25 Mg Tablet, 25 MG PO BID, (Reported) Metronidazole 500 Mg Tablet, 500 MG PO TID Prescribed by: JABIER COLLINS on 01/14/18 112 Ondansetron 4 Mg Tab.rapdis, 4 MG PO Q6H PRN for NAUSEA/VOMITING-1ST LINE Prescribed by: JABIER COLLINS on 01/14/18 112 Patient Home Medication List Home Medication List Reviewed: Yes Past Hukqfnn-Zvjvue-Fgksgs Hx Patient Social History Alcohol Use: Denies Use Recreational Drug Use: No Smoking Status: Current Everyday Smoker Type Used: Cigarettes 2nd Hand Smoke Exposure: Yes Recent Foreign Travel: No Contact w/other who traveled: No Recent Hopitalizations: No Recent Infectious Disease Expo: No Immunizations Up To Date Tetanus Booster (TDap): Unknown Seasonal Allergies Seasonal Allergies: No Surgeries No Respiratory Yes Currently Using CPAP: No Currently Using BIPAP: No Cardiovascular No Neurological Yes Genitourinary No Gastrointestinal No Musculoskeletal Yes (CARPAL TUNNLE) Endocrine History of Endocrine Disorders: No HEENT History of HEENT Disorders: No Cancer No Psychosocial History of Psychiatric Problem: Yes (PANIC ATTACKS) Behavioral Health Disorders: Anxiety Integumentary History of Skin or Integumenta: No Blood Transfusions History of Blood Disorders: No Adverse Reaction to a Blood Tr: No Family Medical History Significant Family History: Asthma, Cancer, CAD Over 55 Years Old, Diabetes, Psychiatric Problems Family Hx: Arthritis 19 MOTHER Cancer of mouth 19 FATHER Cardiovascular disease 19 MOTHER Exam Vital Signs Vital Signs 03/19/20 03/19/20 15:57 16:12 Temp 37.4 Pulse 98 Resp 18 B/P (MAP) 131/61 (84) Pulse Ox 99 O2 Delivery Room Air Capillary Refill : Less Than 3 Seconds Labs Laboratory Tests Test 03/19/20 12:36 03/19/20 12:55 03/19/20 13:25 03/19/20 13:50 Range/Units Urine Color FERNANDA H Urine Clarity CLEAR Urine pH 5.5 5-9 Urine Specific [place] 1.020 1.016-1.022 Urine Protein 2+ H NEGATIVE Urine Glucose (UA) NEGATIVE NEGATIVE Urine Ketones 3+ H NEGATIVE Urine Nitrite NEGATIVE NEGATIVE Urine Bilirubin 2+ H NEGATIVE Urine Urobilinogen >=8.0 < = 1.0 MG/DL Urine Leukocyte Esterase 2+ H NEGATIVE Urine RBC (Auto) 3+ H NEGATIVE Urine RBC 0-2 /HPF Urine WBC 10-25 H /HPF Urine Squamous Epithelial Cells 10-25 H /HPF Urine Crystals NONE /LPF Urine Bacteria FEW H /HPF Urine Casts NONE /LPF Urine Mucus NEGATIVE /LPF Urine Culture Indicated YES White Blood Count 18.5 H 4.3-11.0 10^3/uL Red Blood Count 5.23 H 3.80-5.11 10^6/uL Hemoglobin 16.2 H 11.5-16.0 g/dL Hematocrit 48 35-52 % Mean Corpuscular Volume 91 80-99 fL Mean Corpuscular Hemoglobin 31 25-34 pg Mean Corpuscular Hemoglobin Concent 34 32-36 g/dL Red Cell Distribution Width 13.4 10.0-14.5 % Platelet Count 349 130-400 10^3/uL Mean Platelet Volume 9.5 9.0-12.2 fL Immature Granulocyte % (Auto) 1 % Neutrophils (%) (Auto) 81 H 42-75 % Lymphocytes (%) (Auto) 13 12-44 % Monocytes (%) (Auto) 6 0-12 % Eosinophils (%) (Auto) 0 0-10 % Basophils (%) (Auto) 0 0-10 % Neutrophils # (Auto) 14.9 H 1.8-7.8 10^3/uL Lymphocytes # (Auto) 2.3 1.0-4.0 10^3/uL Monocytes # (Auto) 1.0 0.0-1.0 10^3/uL Eosinophils # (Auto) 0.0 0.0-0.3 10^3/uL Basophils # (Auto) 0.1 0.0-0.1 10^3/uL Immature Granulocyte # (Auto) 0.1 0.0-0.1 10^3/uL Neutrophils % (Manual) 80 % Lymphocytes % (Manual) 16 % Monocytes % (Manual) 4 % Blood Morphology Comment NORMAL Sodium Level 132 L 135-145 MMOL/L Potassium Level 3.7 3.6-5.0 MMOL/L Chloride Level 99 98-107 MMOL/L Carbon Dioxide Level 19 L 21-32 MMOL/L Anion Gap 14 5-14 MMOL/L Blood Urea Nitrogen 7 7-18 MG/DL Creatinine 0.71 0.60-1.30 MG/DL Estimat Glomerular Filtration Rate > 60 BUN/Creatinine Ratio 10 Glucose Level 90 70-105 MG/DL Lactic Acid Level 1.63 0.50-2.00 MMOL/L Calcium Level 8.9 8.5-10.1 MG/DL Corrected Calcium 9.2 8.5-10.1 MG/DL Total Bilirubin 0.9 0.1-1.0 MG/DL Aspartate Amino Transf (AST/SGOT) 33 5-34 U/L Alanine Aminotransferase (ALT/SGPT) 61 H 0-55 U/L Alkaline Phosphatase 195 H 40-136 U/L Total Protein 7.1 6.4-8.2 GM/DL Albumin 3.6 3.2-4.5 GM/DL Test 03/19/20 18:20 Range/Units General Appearance: Alert, Oriented X3 HEENT: PERRLA Cardiovascular: Regular Rate Abdominal: Other (mild distention, rebound tenderness, no rigidity. Localized low abdominal pain) Neuro: Normal Speech Psych/Mental Status: Mental Status NL, Mood NL Assessment/Plan Admission Diagnosis 49 yo female with pelvic fluid collection Acute pelvic pain Leukocytosis Tobacco use Admission Status: Inpatient Order (span 2 midnights) Reason for Inpatient Admission: Sepsis criteria met. Complex fluid collection in the left adnexal region could represent abscess possibly arising from perforated diverticulitis or from primary adnexal region such as tubo-ovarian abscess. BEATRIS IBRAHIM DO Mar 19, 2020 18:43
[2020-03-19] MEDS ORDERED: BUPIVACAINE 0.25% 30 ML (SENSORCAINE) VIAL ONE (18:46)
[2020-03-19] MEDS ORDERED: SEVOFLURANE (ULTANE) 15 ML INHAL SOLN ONE ×9 (18:47→21:33)
[2020-03-19] MEDS ORDERED: proPOfol 200 MG/20 ML (DIPRIVAN) VIAL IV ONE (18:47)
[2020-03-19] MEDS ORDERED: fentaNYL INJECTION 100 MCG/2 ML AMP ONE ×2 (18:47→21:01)
[2020-03-19] MEDS ORDERED: LIDOCAINE PF 2% 5 ML (XYLOCAINE) VIAL ONE (18:47)
[2020-03-19] MEDS ORDERED: MIDAZOLAM 2 MG/2 ML (VERSED) VIAL ONE (18:49)
[2020-03-19] MEDS ORDERED: morphine INJ 10 MG/ML 1ML (SYR OR VIAL) IVP ONE (20:15)
[2020-03-19] MEDS ORDERED: HYDROmorphone 2 MG/ML VIAL (DILAUDID) IV ONE (20:15)
[2020-03-19] MEDS ORDERED: ONDANSETRON 4 MG/2 ML (SDV) Z0FRAN IVP PRN (20:15)
[2020-03-19] MEDS ORDERED: ROCURONIUM 10 MG/ML 5 ML SYRINGE IV ONE (20:34)
[2020-03-19] MEDS ORDERED: NEOSTIGMINE 3 MG/3 ML VIAL ONE (20:37)
[2020-03-19] MEDS ORDERED: GLYCOPYRROLATE 0.2 MG/ML (ROBINUL) 2 ML VIAL ONE (20:37)
[2020-03-19] MEDS: KETOROLAC 30 MG/ML VIAL IVP PRN (22:06)
[2020-03-19] MEDS: metroNIDAZOLE 500 MG/100 ML IVPB (PRE-MIX) IV SCH (23:28)
[2020-03-20] MEDS: HYDROmorphone 2 MG/ML VIAL (DILAUDID) IV PRN ×4 (01:07→21:54)
[2020-03-20] MEDS: ceFAZolin 1,000 MG/SWFI 10 ML IV PUSH IV SCH ×10 (01:07→23:26)
[2020-03-20] MEDS: LACTATED RINGERS 1,000 ML IV SCH ×3 (02:03→17:29)
[2020-03-20 04:22] VITALS: BP 116/60
[2020-03-20] MEDS: KETOROLAC 30 MG/ML VIAL IVP PRN ×3 (04:22→19:50)
[2020-03-20 05:08] LABS: BASOPHILS % (AUTO) 0 % (0-10); EOSINOPHILS # (AUTO) 2.9 10^3/uL (0.0-0.3); EOSINOPHILS % (AUTO) 16 % (0-10); HEMATOCRIT 40 % (35-52); HEMOGLOBIN 13.4 g/dL (11.5-16.0); LYMPHOCYTES % (AUTO) 6 % (12-44); MEAN CORPUSCULAR HEMOGLOBIN 31 pg (25-34); MEAN CORPUSCULAR HGB CONC 33 g/dL (32-36); MEAN CORPUSCULAR VOLUME 92 fL (80-99); MEAN PLATELET VOLUME 9.2 fL (9.0-12.2); MONOCYTES # (AUTO) 0.5 10^3/uL (0.0-1.0); MONOCYTES % (AUTO) 3 % (0-12); NEUTROPHILS # (AUTO) 13.4 10^3/uL (1.8-7.8); NEUTROPHILS % (AUTO) 75 % (42-75); PLATELET COUNT 273 10^3/uL (130-400); WHITE BLOOD COUNT 17.9 10^3/uL (4.3-11.0)
[2020-03-20 05:23] LABS: ALBUMIN 3.4 GM/DL (3.2-4.5); CHLORIDE 104 MMOL/L (98-107); POTASSIUM 4.2 MMOL/L (3.6-5.0)
[2020-03-20 05:24] LABS: SODIUM 135 MMOL/L (135-145)
[2020-03-20 05:25] LABS: CALCIUM 8.7 MG/DL (8.5-10.1)
[2020-03-20 05:26] LABS: GLUCOSE 121 MG/DL (70-105); TOTAL PROTEIN 6.9 GM/DL (6.4-8.2)
[2020-03-20 05:27] LABS: CARBON DIOXIDE 18 MMOL/L (21-32)
[2020-03-20 05:28] LABS: BILIRUBIN,TOTAL 0.5 MG/DL (0.1-1.0)
[2020-03-20 05:29] LABS: ALKALINE PHOSPHATASE 181 U/L (40-136)
[2020-03-20 05:30] LABS: CREATININE SERUM 0.69 MG/DL (0.60-1.30); GFR ESTIMATED > 60
[2020-03-20 05:31] LABS: BUN/CREATININE RATIO 12
[2020-03-20 05:32] LABS: ALANINE AMINOTRANSFERASE 46 U/L (0-55)
--- NOTE | 2020-03-20 07:42 | OPERATIVE REPORT ---
DATE OF SERVICE: PREOPERATIVE DIAGNOSES: 1. A 49-year-old female with left-sided adnexal pelvic fluid collection. 2. Leukocytosis. POSTOPERATIVE DIAGNOSES: 1. A 49-year-old female with left-sided adnexal pelvic fluid collection. 2. Leukocytosis. SURGEON: Jani Michele, Intraoperative consultation made to Dr. Elvis Parekh. ANESTHESIA: General endotracheal. ESTIMATED BLOOD LOSS: 200 mL. URINE OUTPUT: 250 mL clear at the end of the procedure. FLUIDS: 1200 mL of lactated Ringer's solution. FINDINGS: Grossly normal-appearing external female genitalia. Dense extensive adhesions of the left side of the pelvis including the adnexa of the sigmoid colon, edematous inflammation noted as well. Grossly normal appearing right ovary and fallopian tube. SPECIMEN SENT: Partially resected left adnexal complex abscess. INDICATIONS FOR PROCEDURE: This 49-year-old female I was notified within the Emergency Department with either a suspected ruptured diverticulum or pelvic tubo-ovarian abscess. She met sepsis criteria with elevated white count and was febrile in the Emergency Department. Due to this, she was admitted and started on IV antibiotics of Ancef and Flagyl. Gonorrhea and chlamydia cultures were collected and per the provider in the Emergency Department, there was purulent material coming out of the cervix that was noted on exam. Due to suspicion of more so a tubo-ovarian abscess, I was consulted and agreed to take admission of the patient. On admission, pain control and antibiotics were initially started; however, it was becoming difficult to manage the patient's pain. She started to have significant rebound tenderness and a growing concern that this abscess had ruptured due to the patient's nonimprovement in clinical status. I discussed with her proceeding with diagnostic laparoscopy and management of this hopefully in a minimally invasive way. Risks of the procedure were discussed with the patient in detail and after all her questions were answered, consent was obtained, the patient was taken to the operating room. OPERATIVE REPORT IN DETAIL: Once in the operating room, anesthesia was found to be adequate, placed in dorsal lithotomy position, prepped and draped in normal sterile fashion. A timeout was performed. A Preciado catheter was placed using sterile technique. A weighted speculum inserted into the patient's vagina. Right angle retractor was used to visualize the cervix, which was grasped at 12 o'clock position using a long Allis clamp. I then gently sound the uterine cavity, depth was found to be approximately 8 cm. I then placed a Kronner uterine manipulator to a depth of 8 cm. I removed all the other instruments from the patient's vagina, performed change of gloves, obtained my attention to the abdomen where infraumbilically I infiltrated this area using 0.25% Marcaine. I made a 5 mm incision with 11 blade knife and directed Veress needle through the incision, intraperitoneal placement was confirmed using a saline drop test. I then proceeded with insufflation using CO2 gas and opening pressure of 8 mmHg was noted proceeded to maximum pressure of 15 mmHg, at which point I removed the Veress needle. I introduced a 5 mm blunt laparoscopic trocar. Once this was in place, I am able to confirm intraperitoneal placement using the laparoscope. A brief scan of the upper abdominal anatomy appears grossly normal. The pelvic anatomy was distorted and edematous. There are both filmy and dense adhesions of the omentum to the anterior pelvic wall. These were initially taken down after I place a trocar in the left lower quadrant, 5 mm trocar was placed in similar fashion. Once this was placed, those adhesions are taken down, which enabled me to visualize the serosal surface of the uterus; however, the anterior cul-de-sac was completely obliterated, the posterior cul-de-sac was slightly obliterated as well. I encounter in my dissection, purulent exudate surrounding the left adnexa and a cystic structure that adheres of the broad ligament to the anterior cul-de-sac. I copiously irrigated out this abscess pocket and resected portions of this abscess wall. I also identified what appears to be left fallopian tube that is significantly dilated. The wound appears to be filled full of thicker consistent fluid. I take a portion of fallopian tube down with the LigaSure device. However, due to the proximity to the sigmoid colon adhesions to the left side, I am unable to fully elaborated and so this is only a segmental resection of the fallopian tube. The left ovary and infundibulopelvic ligament are unable to be identified; however, there does not appear to be any more encapsulated masses just dense adhesions of the sigmoid colon going down the left pelvic sidewall and encasing the left ovarian fossa. At this point, due to the significant amount of adhesions and my concern with the edema surrounding these adhesions, I decided not to proceed any further. I am also concerned of potential damage to the bowel due to the edematous changes in the area. I contact general surgery and Dr. Parekh presents to help me evaluate the bowel and ensure that there does not appear to be damaged by blunt dissection of these adhesions. He is able to assist the situation and agrees that the best course of action at this point would be to place drains and keep the pelvis decompressed of fluid collection using these drains. We also agreed to continue on antibiotic therapy, at which point a suprapubic trocar was placed to assist in placing these drains with a 12 mm trocars placed under direct visualization and laparoscope. Once this was in place, we copiously irrigated the pelvis using normal saline over 3 liters of irrigation was used. After which, there does not appear to be any active bleeding from any of my dissection planes, just slow oozing from raw surfaces. We then introduced two separate AJIT drains through the left lower quadrant trocar site and run one AJIT drain across the anterior cul-de-sac and from the uterus and the other AJIT drain down the posterior cul-de-sac to keep reaccumulation from occurring. The segmented portions of the left adnexa that I resected. I removed using an Endopouch through the suprapubic trocar site. Once removed, they were sent together in one specimen container. The fascia of the 12 mm trocar site was reapproximated using an EndoStitch device and 0 Vicryl suture through the fascia. The skin was then reapproximated using 4-0 Monocryl in a running subcuticular stitch. Insufflation was released through the infraumbilical trocar site and then the trocars were removed as well. The skin at that site was reapproximated using Dermabond. The left lower quadrant trocar site was left open and this is where both of our drains were coming out. Drain sutures were then adhered to the skin using 3-0 silk suture. AJIT drains with suction are attached to the end of our drains. Preciado catheter was left in place. The patient tolerated the procedure well and was taken to recovery area in stable condition after lap and sponge counts were correct and instrument counts correct as well. Job ID: [id number] DocumentID: [id number] Dictated Date: 03/19/2020 22:02:47 Child Custody Evaluator Date: 03/20/2020 07:41:46 Dictated By: DO NALLELY GR
[2020-03-20 08:00] VITALS: BP 115/78
[2020-03-20] MEDS: metroNIDAZOLE 500 MG/100 ML IVPB (PRE-MIX) IV SCH ×2 (08:25→21:35)
--- NOTE | 2020-03-20 08:52 | Progress Note ---
Standard Progress Note Progress Notes/Assess & Plan Date Seen by a Provider: Mar 20, 2020 Time Seen by a Provider: 10:00 Progress/Assessment & Plan Patient doing well POD 1 from laparoscopic excision and drainage left TOA. She has good pain control, and catheter drainage. AJIT drainage of 160mL charted overnight. Incisions- c/d/i Abd: soft/mildly tender Vital Sign - Last 24 Hours 03/19/20 03/19/20 03/19/20 03/19/20 12:35 14:46 15:03 15:57 Temp 36.2 36.2 37.4 37.4 Pulse 116 102 98 98 Resp 22 18 18 18 B/P (MAP) 136/86 (103) 133/86 (103) 131/61 131/61 (84) Pulse Ox 99 99 99 99 O2 Delivery Room Air Room Air Room Air Room Air 03/19/20 03/19/20 03/19/20 03/19/20 16:12 19:37 21:44 21:44 Temp 35.4 37 Pulse 108 Resp 16 16 B/P (MAP) 140/77 (98) 128/89 (102) Pulse Ox 99 93 99 O2 Delivery Room Air Room Air OxyMask OxyMask O2 Flow Rate 10 10 03/19/20 03/19/20 03/19/20 03/19/20 21:50 21:54 22:00 22:05 Resp 19 16 B/P (MAP) 133/78 (96) 131/81 (98) Pulse Ox 98 99 O2 Delivery OxyMask OxyMask OxyMask OxyMask O2 Flow Rate 8 8 6 6 03/19/20 03/19/20 03/19/20 03/19/20 22:10 22:15 22:20 22:25 Resp 18 16 B/P (MAP) 127/79 (95) 114/83 (93) Pulse Ox 96 96 O2 Delivery OxyMask OxyMask OxyMask OxyMask O2 Flow Rate 4 4 2 2 03/19/20 03/19/20 03/19/20 03/19/20 22:30 22:40 22:40 23:00 Temp 36.4 Resp 17 17 B/P (MAP) 126/71 (89) 123/74 (90) Pulse Ox 96 95 92 O2 Delivery OxyMask Room Air Room Air Room Air O2 Flow Rate 2 03/19/20 03/20/20 03/20/20 03/20/20 23:00 02:35 04:22 08:00 Temp 36.6 36.1 36.4 Pulse 93 65 70 Resp 18 18 18 B/P (MAP) 118/63 (81) 116/60 (78) 115/78 (90) Pulse Ox 93 95 97 O2 Delivery Room Air Room Air Room Air Room Air Intake and Output 03/19/20 03/19/20 03/20/20 15:00 23:00 07:00 Intake Total 1020 ml 1610 ml 1010 ml Output Total 560 ml 960 ml Balance 1020 ml 1050 ml 50 ml Diagnosis: POD 1 Laparoscopic excision and drainage TOA Leukocytosis improved P: Continue monitoring for improvement Strict I and Os Preciado out later today IS use Encourage ambulation Laboratory Tests Test 03/19/20 12:36 03/19/20 12:55 03/19/20 13:25 03/19/20 13:50 Range/Units Urine Color FERNANDA H Urine Clarity CLEAR Urine pH 5.5 5-9 Urine Specific Marion 1.020 1.016-1.022 Urine Protein 2+ H NEGATIVE Urine Glucose (UA) NEGATIVE NEGATIVE Urine Ketones 3+ H NEGATIVE Urine Nitrite NEGATIVE NEGATIVE Urine Bilirubin 2+ H NEGATIVE Urine Urobilinogen >=8.0 < = 1.0 MG/DL Urine Leukocyte Esterase 2+ H NEGATIVE Urine RBC (Auto) 3+ H NEGATIVE Urine RBC 0-2 /HPF Urine WBC 10-25 H /HPF Urine Squamous Epithelial Cells 10-25 H /HPF Urine Crystals NONE /LPF Urine Bacteria FEW H /HPF Urine Casts NONE /LPF Urine Mucus NEGATIVE /LPF Urine Culture Indicated YES White Blood Count 18.5 H 4.3-11.0 10^3/uL Red Blood Count 5.23 H 3.80-5.11 10^6/uL Hemoglobin 16.2 H 11.5-16.0 g/dL Hematocrit 48 35-52 % Mean Corpuscular Volume 91 80-99 fL Mean Corpuscular Hemoglobin 31 25-34 pg Mean Corpuscular Hemoglobin Concent 34 32-36 g/dL Red Cell Distribution Width 13.4 10.0-14.5 % Platelet Count 349 130-400 10^3/uL Mean Platelet Volume 9.5 9.0-12.2 fL Immature Granulocyte % (Auto) 1 % Neutrophils (%) (Auto) 81 H 42-75 % Lymphocytes (%) (Auto) 13 12-44 % Monocytes (%) (Auto) 6 0-12 % Eosinophils (%) (Auto) 0 0-10 % Basophils (%) (Auto) 0 0-10 % Neutrophils # (Auto) 14.9 H 1.8-7.8 10^3/uL Lymphocytes # (Auto) 2.3 1.0-4.0 10^3/uL Monocytes # (Auto) 1.0 0.0-1.0 10^3/uL Eosinophils # (Auto) 0.0 0.0-0.3 10^3/uL Basophils # (Auto) 0.1 0.0-0.1 10^3/uL Immature Granulocyte # (Auto) 0.1 0.0-0.1 10^3/uL Neutrophils % (Manual) 80 % Lymphocytes % (Manual) 16 % Monocytes % (Manual) 4 % Blood Morphology Comment NORMAL Sodium Level 132 L 135-145 MMOL/L Potassium Level 3.7 3.6-5.0 MMOL/L Chloride Level 99 98-107 MMOL/L Carbon Dioxide Level 19 L 21-32 MMOL/L Anion Gap 14 5-14 MMOL/L Blood Urea Nitrogen 7 7-18 MG/DL Creatinine 0.71 0.60-1.30 MG/DL Estimat Glomerular Filtration Rate > 60 BUN/Creatinine Ratio 10 Glucose Level 90 70-105 MG/DL Lactic Acid Level 1.63 0.50-2.00 MMOL/L Calcium Level 8.9 8.5-10.1 MG/DL Corrected Calcium 9.2 8.5-10.1 MG/DL Total Bilirubin 0.9 0.1-1.0 MG/DL Aspartate Amino Transf (AST/SGOT) 33 5-34 U/L Alanine Aminotransferase (ALT/SGPT) 61 H 0-55 U/L Alkaline Phosphatase 195 H 40-136 U/L Total Protein 7.1 6.4-8.2 GM/DL Albumin 3.6 3.2-4.5 GM/DL Test 03/19/20 18:20 03/20/20 05:00 Range/Units Serum Test, Qualitative NEGATIVE NEGATIVE White Blood Count 17.9 H 4.3-11.0 10^3/uL Red Blood Count 4.37 3.80-5.11 10^6/uL Hemoglobin 13.4 11.5-16.0 g/dL Hematocrit 40 35-52 % Mean Corpuscular Volume 92 80-99 fL Mean Corpuscular Hemoglobin 31 25-34 pg Mean Corpuscular Hemoglobin Concent 33 32-36 g/dL Red Cell Distribution Width 13.6 10.0-14.5 % Platelet Count 273 130-400 10^3/uL Mean Platelet Volume 9.2 9.0-12.2 fL Immature Granulocyte % (Auto) 0 % Neutrophils (%) (Auto) 75 42-75 % Lymphocytes (%) (Auto) 6 L 12-44 % Monocytes (%) (Auto) 3 0-12 % Eosinophils (%) (Auto) 16 H 0-10 % Basophils (%) (Auto) 0 0-10 % Neutrophils # (Auto) 13.4 H 1.8-7.8 10^3/uL Lymphocytes # (Auto) 1.0 1.0-4.0 10^3/uL Monocytes # (Auto) 0.5 0.0-1.0 10^3/uL Eosinophils # (Auto) 2.9 H 0.0-0.3 10^3/uL Basophils # (Auto) 0.0 0.0-0.1 10^3/uL Immature Granulocyte # (Auto) 0.1 0.0-0.1 10^3/uL Sodium Level 135 135-145 MMOL/L Potassium Level 4.2 3.6-5.0 MMOL/L Chloride Level 104 98-107 MMOL/L Carbon Dioxide Level 18 L 21-32 MMOL/L Anion Gap 13 5-14 MMOL/L Blood Urea Nitrogen 8 7-18 MG/DL Creatinine 0.69 0.60-1.30 MG/DL Estimat Glomerular Filtration Rate > 60 BUN/Creatinine Ratio 12 Glucose Level 121 H 70-105 MG/DL Calcium Level 8.7 8.5-10.1 MG/DL Corrected Calcium 9.2 8.5-10.1 MG/DL Total Bilirubin 0.5 0.1-1.0 MG/DL Aspartate Amino Transf (AST/SGOT) 25 5-34 U/L Alanine Aminotransferase (ALT/SGPT) 46 0-55 U/L Alkaline Phosphatase 181 H 40-136 U/L Total Protein 6.9 6.4-8.2 GM/DL Albumin 3.4 3.2-4.5 GM/DL Focused Exam Lactate Level 03/19/20 13:25: Lactic Acid Level 1.63 BEATRIS IBRAHIM DO Mar 20, 2020 08:52
[2020-03-20] MEDS ORDERED: AZITHROMYCIN 250 MG TAB (ZITHROMAX) PO SCH (09:00)
--- NOTE | 2020-03-20 09:40 | OPERATIVE REPORT ---
DATE OF SERVICE: 03/19/2020 I was asked for intraoperative consult. The patient is a 49-year-old female, who reported having lower abdominal pain, found to have a complex left adnexal fluid collection/abscess. She had a white count of 18,000. DESCRIPTION OF PROCEDURE: The patient was taken to the operating room for surgical intervention by Dr. Michele. There were multiple adhesions present and taken down. He has asked me to come in to evaluate anatomy and to assist with the further procedure. The patient's adhesions have been taken down. A significant evidence of likely tubo-ovarian abscess present. The sigmoid colon was evaluated and appears to be intact. No apparent injury. At this time, Dr. Michele and myself discussed further management and we performed a washout of the abdomen with copious amounts of irrigation and suction. We then placed two 19 Toño drains down in the pelvis, which were then brought out through the left lower quadrant port site. The remainder of the abdomen was inspected with no other pathology noted grossly. It was recommended to the patient to continue with drain management and continued IV antibiotics. At this time, the abdomen was then desufflated, the trocars were removed and the incisions were closed. Please see Dr. Michele's dictation for procedure and details. Job ID: [id number] DocumentID: [id number] Dictated Date: 03/19/2020 22:15:44 Customer Service Officer Date: 03/20/2020 08:36:51 Dictated By: LAYLA HAQUE DO
--- NOTE | 2020-03-20 11:51 | Anesthesia-General Post-Op ---
General Patient Condition Mental Status/LOC: Same as Preop Cardiovascular: Satisfactory Nausea/Vomiting: Absent Respiratory: Satisfactory Pain: Controlled Complications: Absent Post Op Complications Complications None Follow Up Care/Instructions Patient Instructions None needed. Anesthesia/Patient Condition Patient Condition Patient is doing well, no complaints, stable vital signs, no apparent adverse anesthesia problems. KRISTIAN KRAUS DO Mar 20, 2020 11:51
[2020-03-20 12:00] VITALS: BP 98/67
[2020-03-20] MEDS: NICOTINE PATCH REMOVAL TP SCH (15:37)
[2020-03-20] MEDS: NICOTINE 21 MG (NICODERM) PATCH TD SCH (15:37)
[2020-03-20] MEDS: HYDROcodone/APAP 5 MG/325 MG (LORTAB) TAB PO PRN ×2 (15:38→21:53)
--- NOTE | 2020-03-20 16:06 | NUR ---
visited w/ pt and offered blessing.
[2020-03-20 16:36] VITALS: BP 121/63
[2020-03-20 19:55] VITALS: BP 113/77
[2020-03-20 23:29] VITALS: BP 105/65
[2020-03-21] MEDS: LACTATED RINGERS 1,000 ML IV SCH ×3 (01:15→14:04)
[2020-03-21] MEDS: HYDROmorphone 2 MG/ML VIAL (DILAUDID) IV PRN (01:21)
[2020-03-21 03:46] VITALS: BP 107/67
[2020-03-21] MEDS: ceFAZolin 1,000 MG/SWFI 10 ML IV PUSH IV SCH ×2 (05:42)
[2020-03-21] MEDS: HYDROcodone/APAP 5 MG/325 MG (LORTAB) TAB PO PRN ×2 (05:44→13:36)
[2020-03-21 07:11] LABS: BASOPHILS # (AUTO) 0.1 10^3/uL (0.0-0.1); BASOPHILS % (AUTO) 0 % (0-10); EOSINOPHILS # (AUTO) 0.1 10^3/uL (0.0-0.3); EOSINOPHILS % (AUTO) 1 % (0-10); HEMATOCRIT 39 % (35-52); HEMOGLOBIN 12.5 g/dL (11.5-16.0); LYMPHOCYTES # (AUTO) 3.1 10^3/uL (1.0-4.0); LYMPHOCYTES % (AUTO) 28 % (12-44); MEAN CORPUSCULAR HEMOGLOBIN 30 pg (25-34); MEAN CORPUSCULAR HGB CONC 32 g/dL (32-36); MEAN CORPUSCULAR VOLUME 93 fL (80-99); MEAN PLATELET VOLUME 9.5 fL (9.0-12.2); MONOCYTES # (AUTO) 0.6 10^3/uL (0.0-1.0); MONOCYTES % (AUTO) 6 % (0-12); NEUTROPHILS # (AUTO) 7.3 10^3/uL (1.8-7.8); NEUTROPHILS % (AUTO) 65 % (42-75); PLATELET COUNT 322 10^3/uL (130-400); WHITE BLOOD COUNT 11.2 10^3/uL (4.3-11.0)
[2020-03-21 08:06] VITALS: BP 114/75
--- NOTE | 2020-03-21 09:43 | Progress Note ---
Standard Progress Note Progress Notes/Assess & Plan Date Seen by a Provider: Mar 21, 2020 Time Seen by a Provider: 09:45 Progress/Assessment & Plan Patient doing well POD 2 from laparoscopic excision and drainage left TOA. She has good pain control, and catheter drainage. AJIT drainage of 50 mL charted overnight. Incisions- c/d/i Abd: soft/mildly tender Vital Sign - Last 24 Hours 03/20/20 03/20/20 03/20/20 03/20/20 12:00 16:36 19:50 19:55 Temp 36.0 36.0 35.6 Pulse 64 73 75 Resp 18 20 20 B/P (MAP) 98/67 (77) 121/63 (82) 113/77 (89) Pulse Ox 98 95 98 O2 Delivery Room Air Room Air Room Air Room Air 03/20/20 03/21/20 03/21/20 03/21/20 23:29 03:46 08:00 08:06 Temp 36.0 36.0 36.4 Pulse 75 74 71 Resp 18 18 16 B/P (MAP) 105/65 (78) 107/67 (80) 114/75 (88) Pulse Ox 95 97 99 99 O2 Delivery Room Air Room Air Room Air Room Air Intake and Output 03/20/20 03/20/20 03/21/20 15:00 23:00 07:00 Intake Total 1700 ml 1012 ml 1620 ml Output Total 70 ml 20 ml 40 ml Balance 1630 ml 992 ml 1580 ml Diagnosis: POD 2 Laparoscopic excision and drainage TOA Leukocytosis resolved P: Continue monitoring for improvement Strict I and Os Converting to oral antibiotic regimen today Education of drain management at home IS use Encourage ambulation Considering discharge later today Laboratory Tests Test 03/21/20 06:55 Range/Units White Blood Count 11.2 H 4.3-11.0 10^3/uL Red Blood Count 4.18 3.80-5.11 10^6/uL Hemoglobin 12.5 11.5-16.0 g/dL Hematocrit 39 35-52 % Mean Corpuscular Volume 93 80-99 fL Mean Corpuscular Hemoglobin 30 25-34 pg Mean Corpuscular Hemoglobin Concent 32 32-36 g/dL Red Cell Distribution Width 14.0 10.0-14.5 % Platelet Count 322 130-400 10^3/uL Mean Platelet Volume 9.5 9.0-12.2 fL Immature Granulocyte % (Auto) 0 % Neutrophils (%) (Auto) 65 42-75 % Lymphocytes (%) (Auto) 28 12-44 % Monocytes (%) (Auto) 6 0-12 % Eosinophils (%) (Auto) 1 0-10 % Basophils (%) (Auto) 0 0-10 % Neutrophils # (Auto) 7.3 1.8-7.8 10^3/uL Lymphocytes # (Auto) 3.1 1.0-4.0 10^3/uL Monocytes # (Auto) 0.6 0.0-1.0 10^3/uL Eosinophils # (Auto) 0.1 0.0-0.3 10^3/uL Basophils # (Auto) 0.1 0.0-0.1 10^3/uL Immature Granulocyte # (Auto) 0.0 0.0-0.1 10^3/uL Focused Exam Lactate Level 03/19/20 13:25: Lactic Acid Level 1.63 BEATRIS IBRAHIM DO Mar 21, 2020 09:43
[2020-03-21] MEDS: metroNIDAZOLE 500 MG/100 ML IVPB (PRE-MIX) IV SCH (09:45)
--- NOTE | 2020-03-21 09:50 | Discharge Inst-Women's Service ---
Discharge Inst-Women's Serv Depart Medication/Instructions New, Converted or Re-Newed RX: RX on Chart Final Diagnosis POD 2 laparoscopic drainage of TOA Problems Reviewed?: Yes Consults/Follow Up Additional Follow Up: Yes Orders/Referrals Dr. Michele on Saturday 03/24. Activity Activity: Activity as Tolerated Driving Instructions: No Driving for 1 Week NO SMOKING: NO SMOKING Nothing Inside Vagina: No Douching, No Gideon, No Tampons Diet Discharge Diet: No Restrictions Symptoms to Report to : Bleeding Excessive, Pain Increased, Fever Over 101 Degrees F, Vaginal Bleeding Increase, Questions/Concerns For Any Problems or Questions: Contact Your Physician Skin/Wound Care Infection Signs and Symptoms: Increased Redness, Foul Odor of Wound, Increased Drainage, Skin Itchy or Has a Rash, Increased Swelling, Temperature Above 101 F Operative Area Clean and Dry: Keep Incision Clean/Dry Wound Care Comment: Drain management education and log output Stitches/Thien/Dermabond: Dermabond, Care of Stitches Bathing Instructions: BEATRIS Louie DO Mar 21, 2020 09:50
[2020-03-21] MEDS ORDERED: DOXY100T2 PO (09:52)
[2020-03-21] MEDS ORDERED: METR-145 PO (09:52)
[2020-03-21] MEDS ORDERED: ACHD5005 PO (09:52)
[2020-03-21 16:00] VITALS: BP 114/70
[2020-03-21] MEDS: NICOTINE 21 MG (NICODERM) PATCH TD SCH (16:15)
[2020-03-21] MEDS: NICOTINE PATCH REMOVAL TP SCH (16:15)
[2020-03-21] MEDS ORDERED: DOXYCYCLINE 100 MG (VIBRAMYCIN) TABLET PO SCH (17:00)
[2020-03-21 18:57] VITALS: BP 114/70
[2020-03-21] MEDS ORDERED: metroNIDAZOLE 500 MG (FLAGYL) TAB PO SCH (21:00)
--- NOTE | 2020-03-23 06:02 | Physician Query Clarification ---
PQ-Uncertain Diagnosis Admission/Discharge Admission Date: Mar 19, 2020 at 14:23 Discharge Date: Mar 21, 2020 at 18:59 Dr. BEATRIS IBRAHIM DO The medical record reflects the following clinical scenario: History/Risk Factors: [list no more than 2] Clinical Findings: [list no more than 2] Treatment: [list no more than 2] Question: Is [diagnosis] a clinically valid diagnosis? [diagnosis] was documented in the [dates and type of documents] with no further documentation in the medical record. Please document a response in Progress Note or Discharge Summary. 1. Yes, clinically valid, condition resolved. 2. No, condition ruled out. 3. Other, with explanation of clinical findings. 4. Undetermined, no explanation for clinical findings. Please remember a lack of response to the above will prompt a phone page by [facility]/Coding staff. In responding to this query, please exercise your independent professional judgment. The purpose of this communication is to more accurately reflect the complexity of your patients condition. The fact that a question is asked does not imply that any particular answer is desired or expected. Thank you for your timely response to this clarification. Requestors name: [ ] Phone # [ ] THIS PHYSICIAN QUERY FORM IS A PERMANENT PART OF THE MEDICAL RECORD MAHESH GRIFFITHS Mar 23, 2020 06:02
== END 2020-03-21 18:59 | disposition home or self-care (01) | DRG 855 ==
LOC: ER 12:33 → EDUNIT# 12:33 → 4TH 14:23
PROVIDERS: ADMIT Obstetrics & Gynecology; ATTEND Obstetrics & Gynecology
PROC: 0W9J30Z Drainage of Pelvic Cavity with Drainage Device, Percutaneous Approach (ICD-10-PCS; 2020-03-19)
PROC: 0UB64ZX Excision of Left Fallopian Tube, Percutaneous Endoscopic Approach, Diagnostic (ICD-10-PCS; principal; 2020-03-19 19:07)
DX: A41.9 Sepsis, unspecified organism (principal); N70.93 Salpingitis and oophoritis, unspecified; N73.6 Female pelvic peritoneal adhesions (postinfective); F17.210 Nicotine dependence, cigarettes, uncomplicated; J45.909 Unspecified asthma, uncomplicated; F41.0 Panic disorder [episodic paroxysmal anxiety]
CPT/HCPCS: 36415; 74177; 80053; 81000; 83605; 84703; 85007; 85025; 85027; 87040; 87070; 87077; 87088; 87205; 87210; 87491; 87591; 88305; 94664; 96361; 96365; 96375; 96376